=== PATIENT | female | born 1955 | race Caucasian/White ===

== ENCOUNTER 2017-01-27 05:39 | Inpatient (IN) | payer MEDICARE ==
[2017-01-27 06:50] LABS: #Basophils 0.1 thou/uL (0.0-0.2); #Eosinphils 0.2 thou/uL (0.0-0.7); #Lymphocytes 1.1 thou/uL (1.20-3.40); #Monocytes 0.3 thou/uL (0.11-0.59); #Neutrophils 8.5 thou/uL (1.40-6.50); %Basophils 0.6 % (0.0-1.0); %Eosinophils 1.8 % (0.0-10.0); %Lymphocytes 10.8 % (21.0-51.0); %Monocytes 3.1 % (0.0-10.0); Hematocrit 18.8 % (36.0-47.0); Mean Platelet Volume 7.1 fL (7.4-10.4); Red Blood Cell (RBC) Count 1.82 mill/uL (4.20-5.40); White Blood Cell (WBC) Count 10.1 thou/uL (4.8-10.8)
[2017-01-27 07:04] LABS: PTT 24.7 SEC (22.9-36.1)
[2017-01-27 07:09] LABS: ALT (SGPT) 8 U/L (8-55); AST (SGOT) 10 U/L (5-34); Alkaline Phosphatase 58 U/L (40-150); Anion Gap 29 mmol/L (10-20); BUN (Urea Nitrogen) 105 mg/dL (9.8-20.1); Bilirubin, Total 0.3 mg/dL (0.2-1.2); Calc. Creatinine Clearance 0 mL/min (70-130); Calcium 8.9 mg/dL (7.8-10.44); Carbon Dioxide 17 mmol/L (23-31); Chloride 99 mmol/L (98-107); Estimated GFR-MDRD 3; Globulin 3.1 g/dL (2.4-3.5); Protein, Total 6.7 g/dL (6.0-8.3)
[2017-01-27 07:59] LABS: Lipase 47 U/L (8-78); Magnesium 2.8 mg/dL (1.6-2.6); Phosphorus 8.7 mg/dL (2.3-4.7)
[2017-01-27] MEDS ORDERED: Calcium Chloride 1 GM/10 ML Abboject SYRINGE ONE (08:10)
[2017-01-27] MEDS ORDERED: Insulin Regular 300 UNITS/3 ML VIAL ONE (08:10)
[2017-01-27 08:15] LABS: Troponin I 3.098 ng/mL (< 0.028)
[2017-01-27 08:19] LABS: Bilirubin Negative (Negative); Blood, Urine Trace (Negative); Glucose, Urine (Dipstick) 250 mg/dL (Negative); Ketone, Urine Negative (Negative); Nitrite Negative (Negative); Protein, Urine (Dipstick) 300 mg/dL (Neg-Trace); Urobilinogen 0.2 mg/dL (0.2-1.0)
[2017-01-27 08:21] LABS: Bacteria/HPF None Seen HPF (None Seen); Hyaline Casts/LPF 4-6 HYALINE CAST LPF (0-3 Hyaline); RBC/HPF None Seen HPF (0-3); Squamous Epithelial 0-3 HPF (0-3); WBC/HPF None Seen HPF (0-3)
[2017-01-27] MEDS ORDERED: Famotidine 20 MG TAB PO SCH ×2 (09:00→21:00)
[2017-01-27 09:18] LABS: Anion Gap 7 mmol/L (-14-95); Critical Call POC Critical Value; T. Carbon Dioxide 16.3 mmol/L (1.0-85.0); pH (Venous) 7.395 (7.35-7.45); vO2 Saturation-calc 99.5 % (0.0-100.0)
[2017-01-27] MEDS ORDERED: Morphine 2 mg/2ml in 0.9% NaCl PF SYRINGE ONE (09:28)
[2017-01-27 10:17] LABS: Troponin I 2.728 ng/mL (< 0.028)
[2017-01-27] MEDS ORDERED: Ondansetron HCl/PF 4 MG/2 ML Vial IVP PRN ×2 (10:36)
[2017-01-27] MEDS ORDERED: Acetaminophen 325 MG TAB PO PRN ×2 (10:36)
[2017-01-27] MEDS ORDERED: Diabetic Tussin 200 MG/10 ML UDCUP PO PRN (10:36)
[2017-01-27] MEDS ORDERED: Benzonatate 100 MG CAP PO PRN (10:36)
[2017-01-27] MEDS ORDERED: Mag-Al 1200 mg/1200 mg/30 ML UDCUP PO PRN ×2 (10:36)
[2017-01-27] MEDS ORDERED: Bisacodyl 5 MG TAB PO PRN ×2 (10:36)
[2017-01-27] MEDS ORDERED: Loratadine 10 MG TAB PO PRN (10:36)
[2017-01-27] MEDS ORDERED: Calcium Carbonate 500 MG ChewTAB PO PRN (10:36)
[2017-01-27] MEDS ORDERED: hydrALAZINE 20 MG/ML VIAL SLOW IVP PRN (10:36)
[2017-01-27] MEDS ORDERED: Senokot 8.6 MG TAB PO PRN ×2 (10:36)
[2017-01-27] MEDS ORDERED: cloNIDine 0.1 MG TAB PO PRN (10:36)
[2017-01-27] MEDS ORDERED: Nitroglycerin 0.4 MG TAB (25 Tab Bottle) SL PRN (10:36)
[2017-01-27] MEDS ORDERED: Lorazepam 1 MG TAB PO PRN (10:36)
[2017-01-27] MEDS ORDERED: Heparin 5,000 UNITS/ML VIAL SC SCH ×2 (10:36→21:00)
[2017-01-27] MEDS ORDERED: HYDROcodone/Acetaminophen 10/325 mg Tablet PO SCH (10:54)
[2017-01-27] MEDS ORDERED: Dextrose 5% in Water 1,000 ML IV PRN (14:07)
[2017-01-27] MEDS ORDERED: Dextrose 50% Abboject 50 ML SYRINGE SLOW IVP PRN (14:07)
[2017-01-27] MEDS ORDERED: HumaLOG 300 UNITS/3 ML VIAL SC PRN ×2 (14:07)
[2017-01-27 15:15] VITALS: BMI 41.5
--- NOTE | 2017-01-27 15:56 | HP ---
DATE OF ADMISSION: 01/27/2017 PRIMARY CARE PHYSICIAN: None. CHIEF COMPLAINT: Vaginal bleed and missed hemodialysis and generalized weakness. HISTORY OF PRESENT ILLNESS: Ms. Allen is a 61-year-old female with known history of uterine cancer status post incomplete treatment 3 years ago and hysterectomy as well as end-stage renal disease and coronary artery disease and diabetes, who presented to the emergency room with the above-mentioned c omplaint. History is mainly obtained by the patient herself, who is somewhat a poor historian. [facility] records have been reviewed extensively. She was last admitted to our facility with similar compl aints in 08/2016 and was admitted by myself. At that time, she was seen by GLOVE MACHINE OPERATOR as well as Oncolog y for vaginal bleed secondary to cervical cancer and was referred back to her primary oncologist in [facility] in [place]; Dr. Hollis. Today, she tells me that she has once again failed to follow up. She has 2 deaths in her family including her sister and her dad and is currently dependent on her ks phew for her daily care and has not been able to follow up. She says that they did call and try to m liban appointment, but we were unable to get the appointment at Dr. Hollis's office. She presented to the emergency room today complaining of abdominal pain, weakness, and muscle crampin g. She reports of passing significant blood clots for the last many days. She reports that she pass es blood clots on and off and sometimes they are really bad. Some months, she does not have any blee d at all but some months is really bad. Today upon presentation, she was hemodynamically stable with the blood pressure of 148/73 and pulse o f 70. Her examination including of gynecological examination did showed significant clot in the vagi na, as well as significant lab abnormalities due to missed hemodialysis. She was found to be hyperka lemic with a potassium of 7.5 with significant metabolic acidosis. She was found to be in gross flui d overloaded with the BNP of 2700. She also had elevated troponin in the range of 3.098 with repeat troponin of 2.728. In the emergency room, 2 units packed RBC were ordered for him. She was treated for hyperkalemia wit h calcium chloride as well as insulin with dextrose and is now being admitted for further evaluation and care. Her executive vice president and chief operating officer, Dr. Stevens has been contacted by the ER physician and she has actually finished an emergent hemodialysis session. Reportedly, she did not tolerate any fluid removal. She has seen and examined in the dialysis unit. PAST MEDICAL HISTORY: 1. End-stage renal disease, on hemodialysis. 2. History of gram negative bacteremia with Klebseilla in 02/2015. 3. Coronary artery disease with history of stent placement. 4. Hypertension. 5. Diabetes. 6. Dyslipidemia. 7. Uterine cancer with status post hysterectomy and chemotherapy x1 in 11/2014. 8. Chronic anemia. 9. Lower extremity ulcers, chronic. PAST SURGICAL HISTORY: 1. Breast reduction. 2. Hysterectomy with oophorectomy. 3. Appendectomy. 4. Hernia repair. 5. Cardiac stent placement. ALLERGIES: LEVOFLOXACIN and FLAGYL. SOCIAL HISTORY: She currently lives at home with her nephew, who is the primary care provider. No h istory of drug, tobacco, or alcohol abuse. FAMILY HISTORY: Significant for heart disease. CURRENT MEDICATIONS: Unknown. The patient did not bring the list of the medications with her. Acco rding to the ER note, she takes the following carvedilol 16.25 b.i.d., Renvela 800 mg 3 tablets three times a day, Cheryl-Shaila 0.8 mg daily, atorvastatin 20 mg daily, amitriptyline 25 mg 3 tablets at bedt hi, Plavix 75 mg daily, and hydralazine 50 mg t.i.d. REVIEW OF SYSTEMS: The following complete review of systems was negative, unless otherwise mentioned in the HPI or below: Constitutional: Weight loss or gain, ability to conduct usual activities. Skin: Rash, itching. Eyes: Double vision, pain. ENT/Mouth: Nose bleeding, neck stiffness, pain, tenderness. Cardiovascular: Palpitations, dyspnea on exertion, orthopnea. Respiratory: Shortness of breath, wheezing, cough, hemoptysis, fever or night sweats. Gastrointestinal: Poor appetite, abdominal pain, heartburn, nausea, vomiting, constipation, or diarrh ea. Genitourinary: Urgency, frequency, dysuria, nocturia. Musculoskeletal: Pain, swelling. Neurologic/Psychiatric: Anxiety, depression. Allergy/Immunologic: Skin rash, bleeding tendency. PHYSICAL EXAMINATION: VITAL SIGNS: Most recent blood pressure 141/79, pulse of 74, respirations 22, saturating 100% on shayla m air, and temperature on presentation; afebrile. GENERAL: She appears pale, weak, and tired looking, but no acute distress. Awake, alert, oriented x 3. HEENT: Conjunctival pallor is noted. No scleral icterus. Head is normocephalic, atraumatic. Pupil s are equal, reactive to light and accommodation. Extraocular movements intact. NECK: Supple without any lymphadenopathy, JVD, or bruit. CHEST: Clear to auscultation with some bibasilar rales. No wheezes noted. CARDIOVASCULAR: Regular rate and rhythm is regular without any murmur, rubs or gallops. ABDOMEN: Obese, somewhat tender to palpation and distended. EXTREMITIES: Dialysis fistula with thrill and bruit present. Some pedal edema bilaterally without a ny erythema. NEUROLOGIC: Nonfocal. SKIN: Free of any rashes or bruises, feels warm and dry to touch. PSYCHIATRIC: Depressed affect. LABORATORY DATA: A 12 lead EKG by my review showed some T-wave inversion in lead 1, 2, aVL, and V3, and V6. Normal sinus rhythm. CBC shows a hemoglobin of 6.0 with hematocrit of 18.8, platelet count of 268. WBC is 10.1 with 83% n eutrophils. PT, PTT, and INR were within normal limits. Serum chemistries show potassium of 7.5 with a repeat potassium of 7. Bicarbonate 17, anion gap 29, BUN 105, creatinine 13.5, blood sugar 291, troponin 3.098 with repeat troponin of 2.7-8. Beta hydrox ybutyrate is 0.74. Urinalysis show hyalin casts and trace of blood along with protein urine and gluc osuria, but no bacteria. IMPRESSION AND PLAN: 1. Acute blood loss anemia. The patient is status post transfusion of 2 units packed red blood cell s. We will monitor hemoglobin and hematocrit closely and consult Obstetrics/Gynecology for ongoing v aginal bleed. She will be in IMCU for close monitoring. She is currently hemodynamically stable. 2. Fluid overload, hemodialysis urgently has been done. We will monitor fluid status closely. Neph rology has been consulted. 3. Hyperkalemia. We will recheck labs after the hemodialysis. She has been treated emergently in [facility] emergency room with potassium chloride and insulin. 4. Elevated cardiac enzymes. This is most likely secondary to demand ischemia from significant bloo d loss. At this time, we will repeat the troponin and obtain a transthoracic echocardiogram. The la st one for her was done in 10/2015, which was rather unremarkable. She also had a nuclear medicine s tress test done at the same time, which did not show any active ischemia. If her troponins continue to trend upwards, we would request consultations with Cardiology. At this time, we will restart her home medications except for the Plavix given the vaginal bleed. The patient does not have any chest pain at this time. 5. Anion gap metabolic acidosis. This is secondary to acute on chronic kidney insufficiency. Hemod ialysis as indicated. I have discussed this with Dr. Stevens and the patient will be treated with da deena hemodialysis until the electrolyte abnormalities are settle. 6. Acute on chronic kidney insufficiency due to missed hemodialysis. Hemodialysis as tolerated as p er Nephrology. 7. Hyperphosphatemia and hypomagnesemia. Once again electrolyte abnormalities will be taken care of by the hemodialysis. This is secondary to acute on chronic kidney insufficiency. 8. History of hypertension, currently controlled. We will restart her home medications once confirm ed. 9. History of uterine cancer. Once again, I have encouraged the patient to call her oncologist and make a followup appointment. Because of the holidays, the offices closed for the next 3 da ys. I will discuss this with her nephew, who is currently responsible for her care and emphasized th e need for followups. 10. Dyslipidemia. We will restart her Statin, once the dose is confirmed. 11. Code status: FULL CODE for now. Discussed with the patient. 12. Add sequential compression devices for gastrointestinal prophylaxis and proton pump inhibitors f or GI prophylaxis and sequential compression devices for deep venous thrombosis prophylaxis. Avoid p harmacological deep venous thrombosis prophylaxis at this time due to active vaginal bleed. DISPOSITION: Ms. Allen is currently being admitted due to acute on chronic kidney insufficiency as well as acute blood loss anemia due to vaginal bleed. Estimated length of stay is at least 2-3 midnight. She will be admitted to [facility] and further manageme nt will depend upon her clinical course.
[2017-01-27] MEDS ORDERED: Polyethylene Glycol 3350 17 GM Packet PO PRN (17:20)
--- NOTE | 2017-01-27 17:23 | CT ---
ABDOMEN AND PELVIC CT SCAN WITHOUT IV CONTRAST: 01/27/17 The lung bases appear clear. There is some cardiomegaly with extensive three vessel coronary artery c alcific disease. There is extensive vascular calcifications. There is some minimal increased attenuat ion density in the dependent portion of the gallbladder possibly either very small stones or thick sl udge without gallbladder wall thickening or pericholecystic fluid. The kidneys are markedly small sahil aterally, having the appearance of longstanding chronic nonspecific renal disease without hydronephro sis. The visualized pancreas, spleen, and adrenal glands are unremarkable. In the pelvis, there is a lobulated mass in the region of the cervix measuring approximately 4.7 x 6.2 cm. In addition, there i s a lobulated mass of adenopathy in the left pelvis measuring approximately 5.8 x 6.6 cm. This adenop athy area has markedly increased in size when compared to the 08/18/16 study. The mass in the region o f the cervix also appears to be more lobulated and has enlarged since the prior study. There appears to be some new adenopathy, somewhat more caudally in the left pelvic sidewall at the level of the hip joint. IMPRESSION: Marked enlargement and progressive nodularity of mass in the region of the vaginal cuff and cervix as well as extensive worsening of left sided pelvic adenopathy since prior 08/18/16 study. Certainly wor risome for worsening cervical cancer and metastasis. Small chronic kidneys bilaterally, stable. Stabl e increased density in the dependent portion of the gallbladder. Enlarging lymph node in the left upp er iliac chain. POS: ARTUR
[2017-01-27 18:13] LABS: Critical Call Chem Troponin I RESULT DECREASING; Troponin I 2.351 ng/mL (< 0.028)
[2017-01-27] MEDS: Amitriptyline HCl 25 MG TAB PO SCH (21:18)
[2017-01-27] MEDS: Carvedilol 6.25 MG TAB PO SCH (21:19)
[2017-01-27] MEDS: Atorvastatin Calcium 20 MG TAB PO SCH (21:19)
[2017-01-27] MEDS: traMADol HCl 50 MG TAB PO PRN (21:29)
--- NOTE | 2017-01-27 23:33 | CON ---
DATE OF SERVICE: 01/27/2017 TYPE OF CONSULTATION: Gynecologic. REASON FOR CONSULTATION: Heavy vaginal bleeding and anemia. HISTORY OF PRESENT ILLNESS: At the time of presentation, Ms. Allen is a 61-year-old female who is actually known to me from her admission in 08/2016 for similar complaints. At that time, Ms. Allen was found to have likely recurrence of the clear cell carcinoma for which she had a hysterectomy by Dr. Hollis in [place]. Unfortunately, Ms. Allen has not had a good followup for this condition and h as had progression of the fungating mass in the vagina and at the vaginal cuff on the abdominal side with intermittent heavy vaginal bleeding. The patient reports sustaining lower abdominal pain that s he complained of several months ago as well as early satiety, rare nausea and vomiting. She states s he does have regular bowel movements. The patient states that she does still urinate despite her end -stage renal disease and dialysis and that is unchanged. She denies any cardiovascular or respirator y complaints currently but did receive dialysis earlier today. She does complain of worsening in her weakness and fatigue. LIMITED REVIEW OF SYSTEMS: Per HPI. PAST MEDICAL HISTORY: Obtained from the patient's chart, clear cell adenocarcinoma of the uterus, en d-stage renal disease, coronary artery disease, history of [place] with stent placement, type 2 diabetes, chronic hypertension. PAST SURGICAL HISTORY: MICHAEL-BSO, breast reduction, appendectomy, hernia repair. ALLERGIES: LEVOFLOXACIN and METRONIDAZOLE. CURRENT MEDICATIONS: Please refer to the patient's current medical record. PHYSICAL EXAMINATION: VITAL SIGNS: Temperature 97.6, pulse 83, respiratory rate 22, blood pressure 141/32. GENERAL: Nontoxic-appearing female, in no acute distress. SKIN: The patient seems reasonably oriented and actually remembers me from her hospital stay in 08/06 017 but does not seem to remember some details of her medical care. There are no family members pres ent in the room. The patient states she lives with her niece and her nephew generally takes her to h er dialysis appointment. HEENT: Normocephalic, atraumatic. LUNGS: Clear to auscultation in the upper lung paredes. CARDIOVASCULAR: Regular rate and rhythm. ABDOMEN: Obese, tender in the lower midline pelvis. EXTREMITIES: No cyanosis or clubbing, but there is marked edema 2+ on the right, 3+ on the left with pitting. The patient states that her edema is always greater on the left and there is some associat ed left leg pain which is also chronic. LABORATORY DATA AND IMAGING STUDIES: White blood cell count 10.1, hemoglobin 6.0, hematocrit 18.8, p latelets 268,000. PT 16, PTT 24.7, INR 1.3. Sodium 137, potassium 7.5, BUN 105, creatinine 13.5, T and ALT are 10 and 8, respectively. Urinalysis is negative for pyuria. CT scan of the abdomen and pelvis without contrast is notable for marked enlargement of progressive n odularity of the mass in the region of the vaginal cuff and cervix as well as extensive worsening of left-sided pelvic adenopathy since her prior scan on 08/18/2016, enlarging lymph nodes in the left up per iliac chain. No mention is made of free fluid in the pelvis. ASSESSMENT AND PLAN: Ms. Allen is a very pleasant 61-year-old female with multiple medical problem s and lost to follow up and treatment for her clear cell adenocarcinoma of the uterus for which she d id receive a MICHAEL and BSO. The patient only received 1 dose of chemotherapy and has not been seen aft er that. After the patient's discharge in 08/2016, she was supposed to follow up with Oncology who c ould hopefully discuss treatment options for controlling the patient's bleeding and pain. Apparently , this follow up never happened. The patient does not remember seeing an oncologist or going to an O ncology visit, although she does remember going to dialysis treatments and thinks that those were the only doctors' visits that she has had. The patient is not, at the time of my evaluation, having hea vy vaginal bleeding. I did defer the exam simply because there was no active bleeding at this time a nd given that she has a fungating vaginal mass, hesitated to disturb it and cause more bleeding. Ultimately, we will need to have Oncology consult on this patient and make recommendations for treatm ent. Additionally, perhaps social media specialist can be employed to ensure that the patient has an appoint ment with transportation if needed and to possibly explore the factors that may be preventing her fro m receiving the care she needs as an outpatient.
--- NOTE | 2017-01-27 23:36 | CON ---
DATE OF CONSULTATION: 01/27/2017 CONSULTING PHYSICIAN: Dr. Yelena Nobles. REASON FOR CONSULTATION: End-stage renal disease. REASON FOR ADMISSION: Bleeding, anemia, hyperkalemia, and weakness. HISTORY OF PRESENT ILLNESS: This is a 61-year-old female with history of uterine cancer, end-stage r enal disease, coronary artery disease, diabetes, who came to the hospital with weakness. She missed dialysis for almost a week and was feeling weak. She was found to have potassium of 7 with anemia, a nd hemoglobin of 6, she was complaining of vaginal bleeding. The patient was seen and the patient initially refused dialysis, but was agreeable after counseling. No fever or chills, no nausea, vomiting, or diarrhea. The patient was complaining of leg pain. PAST MEDICAL HISTORY: Positive for end-stage renal disease, uterine cancer, anemia, coronary artery disease, hypertension, type 1 diabetes, and obesity. PAST SURGICAL HISTORY: Breast reduction surgery, hysterectomy, appendectomy, hernia repair, and card iac stent placement. HOME MEDICATIONS: Carvedilol, Renvela, Cheryl-Shaila, atorvastatin, amitriptyline, Plavix, and hydralazi ne. ALLERGIES: LEVOFLOXACIN and FLAGYL. SOCIAL HISTORY: No smoking, alcohol, or illicit drug abuse. FAMILY HISTORY: Positive for heart disease. REVIEW OF SYSTEMS: The following complete review of systems was negative, unless otherwise mentioned in the HPI or below. PHYSICAL EXAMINATION: GENERAL: This is an obese female in no apparent distress. VITAL SIGNS: Temperature 97.6, pulse 83, respiratory rate 22, and blood pressure 114/32. HEENT: Atraumatic, normocephalic. Oral mucosa is moist. NECK: Supple, no masses. CARDIOVASCULAR: S1 and S2 heard. Rate and rhythm regular. RESPIRATORY: Clear. MUSCULOSKELETAL: 1+ edema. DERMATOLOGIC: No skin rash. NEUROLOGIC: Alert and awake. PSYCHIATRIC: Mood and affect normal. LABORATORY AND X-RAY FINDINGS: Hemoglobin was 6, potassium was 7. ASSESSMENT AND PLAN: 1. Severe hyperkalemia, emergent dialysis. 2. End-stage renal disease as above. 3. Anemia. We will transfuse with dialysis. 4. Edema, controlled. 5. Hypertension. 5. Vaginal bleeding, follow up with primary team. The plan is to transfuse with dialysis and will have dialysis. Repeat labs in the morning. If potas sium remains elevated, we will have another session of dialysis in the morning. Thank you for the consult.
[2017-01-28 04:59] LABS: #Basophils 0.1 thou/uL (0.0-0.2); #Eosinphils 0.2 thou/uL (0.0-0.7); #Lymphocytes 1.7 thou/uL (1.20-3.40); #Monocytes 0.6 thou/uL (0.11-0.59); #Neutrophils 6.9 thou/uL (1.40-6.50); %Basophils 0.7 % (0.0-1.0); %Eosinophils 2.3 % (0.0-10.0); %Lymphocytes 18.2 % (21.0-51.0); %Monocytes 6.5 % (0.0-10.0); Hematocrit 21.5 % (36.0-47.0); Mean Platelet Volume 6.9 fL (7.4-10.4); Red Blood Cell (RBC) Count 2.19 mill/uL (4.20-5.40); White Blood Cell (WBC) Count 9.6 thou/uL (4.8-10.8)
[2017-01-28 05:25] LABS: Anion Gap 16 mmol/L (10-20); BUN (Urea Nitrogen) 38 mg/dL (9.8-20.1); Calc. Creatinine Clearance 13 mL/min (70-130); Calcium 8.3 mg/dL (7.8-10.44); Carbon Dioxide 27 mmol/L (23-31); Chloride 99 mmol/L (98-107); Estimated GFR-MDRD 6
[2017-01-28] MEDS: Carvedilol 6.25 MG TAB PO SCH ×2 (09:02→21:35)
[2017-01-28] MEDS: Sevelamer Carbonate 800 MG TAB PO SCH ×4 (09:08→17:50)
[2017-01-28] MEDS: traMADol HCl 50 MG TAB PO PRN (09:33)
--- NOTE | 2017-01-28 13:23 | PRG ---
DATE OF SERVICE: 01/28/2017 HISTORY OF PRESENT ILLNESS: The patient is a 61-year-old female with known recurrent clear cell carc inoma located at the cuff of the vagina. She presented for vaginal bleeding and has been transfused now 3 units of packed red blood cells. The patient at this time is having [id number] vaginal blee ding, though presented after having very heavy vaginal bleeding that has spontaneously stopped. PHYSICAL EXAMINATION: VITAL SIGNS: Currently, 128/40, temperature 98.2, respiratory rate 16, satting 95% on room air with a pulse of 69. GENERAL: She appears to be in no acute distress at this time, sitting up quiet in the bed. LABORATORY STUDIES: Her hemoglobin is 7.0 after 2 units of packed red blood cells, Hematocrit of 21. 5, and platelets of 221,000. CT scan demonstrates marked enlargement and progressive nodularity of t he mass in the region of the vaginal cuff as well as extensive worsening of left-sided pelvic adenopa thy since 08/18/2016. ASSESSMENT: The patient is a 61-year-old female with acute vaginal bleeding that had since spontaneo usly stopped. Bleeding is likely connected with what is likely recurrent uterine cancer at the cuff of her vagina that is growing and likely a spread into the right pelvis and possible to other parts o f the body. Acutely patient is stable; however, unpredictable nature of her heavy vaginal bleeding m akes the need for evaluation by Gynecology-Oncology and a treatment plan put in place urgent. The mauro celso did not follow up as planned in 08/2016 nor followed up appropriately at the time of her diagno sis and surgery several years ago. My recommendations at this time would be a aqcnaolf-[id number]-nxstkjde t marianasfer where she can be evaluated by Gynecology-Oncology and a treatment plan put in place. That pl an likely would include radiation to the vaginal cuff, which could in the long-term control her bleed ing. The gynecologic oncologist, who agreed to see her back in August is Dr. Hollis, . Edith sarah, at this point in time transfer to any location where she can continue receiving the hospital car e she needs and be seen by a gynecologic oncologist for evaluation and treatment would be best.
[2017-01-28] MEDS ORDERED: HYDROcodone/Acetaminophen 5/325 mg Tablet PO PRN ×2 (15:15)
--- NOTE | 2017-01-28 15:16 | PDOC.PN ---
- Subjective Encounter Start Date: 01/28/17 Encounter Start Time: 15:13 Subjective: feels better.stiil some on and off bleed but minor -: no chest pain/sob. -: c/o lower abdominal pain - Objective MAR Reviewed: Yes Vital Signs & Weight: Vital Signs (12 hours) Temp Pulse Pulse Resp BP BP BP 01/28/17 15:02 98.0 F 66 16 123/44 L 01/28/17 12:30 98.2 F 69 16 128/40 L 01/28/17 11:50 97.2 F L 66 16 107/36 L 01/28/17 09:02 134/41 L 01/28/17 08:00 98.4 F 66 22 H 133/57 L 01/28/17 04:30 98.2 F 68 18 114/64 Pulse Ox 01/28/17 15:02 94 L 01/28/17 12:30 95 01/28/17 11:50 94 L 01/28/17 09:02 01/28/17 08:00 96 01/28/17 04:30 95 Weight Weight 213 lb 4.8 oz I&O: 01/27/17 01/28/17 01/29/17 06:59 06:59 06:59 Intake Total 1060 350 Output Total 200 Balance 860 350 Result Diagrams: 01/28/17 04:22 01/28/17 04:22 Additional Labs: Accuchecks 01/28/17 01/28/17 01/27/17 11:28 06:24 21:10 POC Glucose 170 H 167 H 186 H Laboratory Tests 01/27/17 01/27/17 01/27/17 06:21 06:36 09:33 Anion Gap 29 H Creatinine 13.50 H Troponin I 3.098 H* 2.728 H* 01/27/17 01/27/17 01/28/17 14:36 17:41 04:22 Anion Gap 16 Creatinine 6.79 H Troponin I 2.560 H* 2.351 H* Phys Exam - Physical Examination Constitutional: NAD pale HEENT: PERRLA, moist MMs, sclera anicteric, oral pharynx no lesions Neck: no nodes, no JVD, supple, full ROM Respiratory: no wheezing, no rales, no rhonchi, clear to auscultation bilateral Cardiovascular: RRR, no significant murmur Gastrointestinal: soft, no distention, positive bowel sounds slight TTP lower abdomen Musculoskeletal: no edema, pulses present Neurological: non-focal, normal sensation, moves all 4 limbs Psychiatric: normal affect, A&O x 3 Skin: no rash Dx/Plan (1) Acute blood loss anemia Code(s): D62 - ACUTE POSTHEMORRHAGIC ANEMIA Status: Acute (2) Fluid overload Code(s): E87.70 - FLUID OVERLOAD, UNSPECIFIED Status: Acute (3) Demand ischemia of myocardium Code(s): I24.8 - OTHER FORMS OF ACUTE ISCHEMIC HEART DISEASE Status: Acute (4) ESRD (end stage renal disease) Code(s): N18.6 - END STAGE RENAL DISEASE Status: Chronic (5) Vaginal bleeding, abnormal Code(s): N93.9 - ABNORMAL UTERINE AND VAGINAL BLEEDING, UNSPECIFIED Status: Chronic Comment: History of uterine cancer. To f/u with oncology in [place]. (6) Coronary artery disease Code(s): I25.10 - ATHSCL HEART DISEASE OF [place] CORONARY ARTERY W/O ANG PCTRS Status: Chronic (7) Diabetes mellitus Code(s): E11.9 - TYPE 2 DIABETES MELLITUS WITHOUT COMPLICATIONS Status: Chronic Qualifiers: Diabetes mellitus complication status: with kidney complications Diabetes mellitus complication detail: with chronic kidney disease (8) Dyslipidemia Code(s): E78.5 - HYPERLIPIDEMIA, UNSPECIFIED Status: Chronic (9) Hypertension Code(s): I10 - ESSENTIAL (PRIMARY) HYPERTENSION Status: Chronic (10) Morbid obesity with BMI of 45.0-49.9, adult Code(s): E66.01 - MORBID (SEVERE) OBESITY DUE TO EXCESS CALORIES; Z68.42 - BODY MASS INDEX (BMI) 45.0-49.9, ADULT Status: Chronic (11) Secondary hyperparathyroidism of renal origin Code(s): N25.81 - SECONDARY HYPERPARATHYROIDISM OF RENAL ORIGIN Status: Chronic (12) Uterine cancer Code(s): C55 - MALIGNANT NEOPLASM OF UTERUS, PART UNSPECIFIED Status: Chronic Comment: s/p MICHAEL BSO - Plan PT/OT, social media senior associate, DVT proph w/SCDs discussed case w & then @ [place] [facility] -: has accepted the pt for inpt admission as she needs Network Designer-Onc care -: cont to monitor H/H.will give 1 more unit prbc during transfer. -: hemodynamically stable.care discussed w pt as well. -: awaiting transfer.HD per nephrology * . Review of Systems - Review of Systems Constitutional: weakness, malaise. negative: fever, chills, sweats, other ENT: negative: Ear Pain, Ear Discharge, Nose Pain, Nose Discharge, Nose Congestion, Mouth Pain, Mouth Swelling, Throat Pain, Throat Swelling, Other Cardiovascular: negative: chest pain, palpitations, orthopnea, paroxysmal nocturnal dyspnea, edema, light headedness, other Gastrointestinal: Abdominal Pain. negative: Nausea, Vomiting, Diarrhea, Constipation, Melena, Hematochezia, Other Genitourinary: negative: Dysuria, Frequency, Incontinence, Hematuria, Retention , Other Musculoskeletal: negative: Neck Pain, Shoulder Pain, Arm Pain, Back Pain, Hand Pain, Leg Pain, Foot Pain, Other Neurological: negative: Weakness, Numbness, Incoordination, Change in Speech, Confusion, Seizures, Other - Medications/Allergies Allergies/Adverse Reactions: Allergies Allergy/AdvReac Type Severity Reaction Status Date / Time ofloxacin [From Floxin] Allergy Mild Verified 01/27/17 15:25 metronidazole [From Flagyl] Allergy Verified 01/27/17 15:25 Medications: Current Medications Acetaminophen (Tylenol) 650 mg PO Q4H PRN PRN Reason: Headache/Fever or Mild Pain Acetaminophen (Tylenol) 650 mg PO Q4H PRN PRN Reason: Headache/Fever or Pain Al Hydroxide/Mg Hydroxide (Maalox) 15 ml PO Q4H PRN PRN Reason: Heartburn or Indigestion Al Hydroxide/Mg Hydroxide (Maalox) 30 ml PO Q6H PRN PRN Reason: Heartburn or Indigestion Amitriptyline HCl (Elavil) 75 mg PO HS [facility] Last Admin: 01/27/17 21:18 Dose: 75 mg Atorvastatin Calcium (Lipitor) 20 mg PO [facility] Last Admin: 01/27/17 21:19 Dose: 20 mg Benzonatate (Tessalon) 100 mg PO Q4H PRN PRN Reason: Cough Bisacodyl (Dulcolax) 10 mg PO DAILYPRN PRN PRN Reason: Constipation Bisacodyl (Dulcolax) 10 mg PO DAILYPRN PRN PRN Reason: Constipation Calcium Carbonate (Tums) 1,000 mg PO Q4H PRN PRN Reason: Heartburn or Indigestion Carvedilol (Coreg) 6.25 mg PO BID [facility] Last Admin: 01/28/17 09:02 Dose: 6.25 mg Clonidine (Catapres) 0.1 mg PO Q4H PRN PRN Reason: Systolic BP > 160 Dextrose/Water (Dextrose 50%) 25 gm SLOW IVP PRN PRN PRN Reason: Hypoglycemia Glucagon (Glucagon) 1 mg IM PRN PRN PRN Reason: Hypoglycemia Guaifenesin (Robitussin Sf) 200 mg PO Q4H PRN PRN Reason: Cough Hydralazine HCl (Apresoline) 10 mg SLOW IVP Q4H PRN PRN Reason: Systolic BP > 170 Dextrose/Water (D5w) 1,000 mls @ 0 mls/hr IV .Q0M PRN; As Directed PRN Reason: Hypoglycemia Insulin Human Lispro (Humalog) 0 units SC .MODERATE SLIDING SC PRN PRN Reason: Moderate Correctional Scale Insulin Human Lispro (Humalog) 0 units SC .BEDTIME SLIDING SC PRN PRN Reason: Bedtime Correctional Scale Loratadine (Claritin) 10 mg PO DAILYPRN PRN PRN Reason: Sinus Symptoms Lorazepam (Ativan) 1 mg PO Q4H PRN PRN Reason: Anxiety/Agitation Last Admin: 01/27/17 16:33 Dose: 1 mg Nitroglycerin (Nitrostat) 0.4 mg SL Q5MIN PRN PRN Reason: Chest Pain Ondansetron HCl (Zofran) 4 mg IVP Q6H PRN PRN Reason: Nausea/Vomiting Ondansetron HCl (Zofran) 4 mg IVP Q6H PRN PRN Reason: Nausea/Vomiting Pantoprazole Sodium (Protonix) 40 mg PO 0900 [facility] Last Admin: 01/28/17 09:02 Dose: 40 mg Polyethylene Glycol (Miralax) 17 gm PO DAILY PRN PRN Reason: Constipation Senna (Senokot) 2 tab PO HSPRN PRN PRN Reason: Constipation Senna (Senokot) 2 tab PO HSPRN PRN PRN Reason: Constipation Sevelamer Carbonate (Renvela) 800 mg PO [facility]ID[facility] Last Admin: 01/28/17 12:16 Dose: 800 mg Tramadol HCl (Ultram) 50 mg PO Q4H PRN PRN Reason: Moderate Pain (4-6) Last Admin: 01/28/17 09:33 Dose: 50 mg
[2017-01-28 15:46] LABS: Troponin I 2.797 ng/mL (< 0.028)
[2017-01-28 19:39] VITALS: TEMP 98
--- NOTE | 2017-01-28 19:46 | RAD ---
UPRIGHT CHEST ONE VIEW: History: 61-year-old female with history of cervical cancer with left central line placement for position eval uation. Comparison: 10-13-15 FINDINGS: There is a left subclavian catheter with the tip in the superior vena cava. Left subclavian vascular stent. Minimal cardiomegaly. No evidence for pneumothorax or pleural effusion or other acute process. IMPRESSION: Left subclavian catheter placement without complication. Minimal cardiomegaly. POS: [facility]
--- NOTE | 2017-01-28 19:53 | OP ---
DATE OF PROCEDURE: 01/28/2017 PREOPERATIVE DIAGNOSES: Anemia, vaginal bleeding, end-stage renal disease. POSTOPERATIVE DIAGNOSES: Anemia, vaginal bleeding, end-stage renal disease. PROCEDURE: Left subclavian vein triple lumen catheter. SURGEON: Dr. Delvis Monterroso ANESTHESIA: 1% Xylocaine. PROCEDURE: At the patient's bedside, left periclavicular area was prepared with chloraprep, draped i n routine fashion. 1% Xylocaine infiltrated into skin and subcutaneous tissue about the operative si te. Trocar catheter cannulated the subclavian vein and J-wire threaded. Seldinger technique was use d to place a triple lumen catheter, removing the J-wire, securing the catheter with 2 interrupted sut ures of 3-0 silk. Biopatch sterile dressing applied. Each port aspirated blood and transected solut ion and flushed each port. Patient tolerated the procedure well.
--- NOTE | 2017-01-28 20:00 | PRG ---
DATE OF SERVICE: 01/29/2017 SUBJECTIVE: Patient was seen and examined at bedside and overnight events noted. Patient denies any shortness of breath or chest pain or palpitation. No history of nausea or vomiting or diarrhea or f ever or chills or cramps. OBJECTIVE: GENERAL: This is a morbidly obese white female in no apparent distress. VITAL SIGNS: Temperature 97, pulse 91, respiratory rate 16, blood pressure 146/34. HEENT: Atraumatic, normocephalic. Oral mucosa is moist. NECK: Supple. CARDIOVASCULAR: S1, S2 heard. Rate and rhythm regular. RESPIRATORY: Clear to auscultation. GASTROINTESTINAL: Abdomen is soft. MUSCULOSKELETAL: No tenderness. No edema. DERMATOLOGIC: No skin rash. NEUROLOGIC: Alert and awake and oriented x3. No focal neurologic deficits. Moving all the extremiti es. PSYCHIATRIC: Mood and affect normal. LABORATORY DATA: Potassium is 4.5, BUN is 38, creatinine 6.7, and hemoglobin is 7.7. ASSESSMENT AND PLAN: 1. End-stage renal disease on hemodialysis today and potassium level is better. No acute indication for dialysis. 2. Hyperkalemia, much better with dialysis. 3. Fluid overload, stable. 4. Anemia. Hemoglobin is slightly better after transfusion, but still around 7. Agree with another unit of transfusion. The patient does not need dialysis with transfusion today. We will monitor. If needed, we will arrange dialysis tomorrow. 5. Hypertension, stable. 6. Anemia, most likely secondary to blood loss. 7. Morbid obesity. 8. Edema, controlled. Plan is to continue on dialysis as tolerated. We will continue close monitoring of labs.
[2017-01-28] MEDS: Amitriptyline HCl 25 MG TAB PO SCH (20:45)
[2017-01-28] MEDS: Atorvastatin Calcium 20 MG TAB PO SCH (20:46)
[2017-01-28 21:35] VITALS: BP 109/47
--- NOTE | 2017-01-29 09:20 | DIS ---
PRIMARY CARE PHYSICIAN: Mirela Bui at [place], [place]. DISCHARGE DIAGNOSES: 1. Acute blood loss anemia secondary to vaginal bleed. 2. Vaginal bleed secondary to cervical and/or uterine cancer. 3. Fluid overload due to missed hemodialysis. 4. Demand ischemia. 5. End-stage renal disease, on hemodialysis. 6. Hypokalemia on presentation which resolved with hemodialysis. 7. History of coronary artery disease. 8. Diabetes mellitus. 9. Dyslipidemia. 10. Hypertension. 11. Secondary hyperparathyroidism of renal origin. 12. History of uterine cancer status post total abdominal hysterectomy and bilateral salpingo-oophor ectomy. CONSULTATIONS: 1. EMISSIONS TESTING AND REPAIR TECHNICIAN; Dr. Rodriguez and Dr. Bowie 2. Nephrology, Dr. Stevens 3. General Surgery, Dr. Monterroso for central line placement. DISCHARGE DISPOSITION: Transferred to [facility] under the care of Dr. Hollis for hig her level of acute care. PROCEDURES PERFORMED IN THE HOSPITAL: 1. Placement of a left subclavian central line by Dr. Monterroso. 2. Transthoracic echocardiogram which showed EF of 50-55% with normal left atrium and left ventricul ar size. Mild to moderate mitral regurgitation seen. 3. CT scan of the abdomen and pelvis which shows marked enlargement and progressive nodularity of ma ss in the region of the vaginal cuff and cervix as well as extensive worsening of the left-sided pelv ic adenopathy since 08/2016. Enlarging lymph node in the left upper iliac chain also noticed. DISCHARGE MEDICATIONS: Same as home medications including Ultram as needed, hydralazine 50 mg p.o. t .i.d., this was held while she was in the hospital. Clonidine 0.1 mg as needed, Renvela 800 mg p.o. t.i.d., MiraLax daily as needed, Protonix 40 mg daily, Nitrostat sublingual 0.4 mg every 5 minutes as needed, Lantus 35 units in the morning and 20 units in the evening, Coreg 6.25 mg p.o. b.i.d. This is to be used if her systolic blood pressure is more than 120, Tums as needed, Lipitor 20 mg daily, E lavil 75 mg daily, Tylenol as needed. HISTORY OF PRESENT ILLNESS: Ms. Allen is a 61-year-old female with known history of uterine cancer who came to the hospital with complaints of vaginal bleeding. She is a dialysis patient due to end- stage renal disease and has missed hemodialysis because of persistent vaginal bleed. Upon presentati on, she was found to be in gross fluid overload with hyperkalemia and acute on chronic kidney insuffi ciency as well as significant acute blood loss anemia with a hemoglobin of 6.0. She was admitted to [facility] and was transfused with 2 units of packed red blood cells and EMISSIONS TESTING AND REPAIR TECHNICIAN was consulted. HOSPITAL COURSE: The patient has no history of uterine cancer status post incomplete treatment excep t for [facility] BSO due to financial and social reasons 1 year ago. Once again, EMISSIONS TESTING AND REPAIR TECHNICIAN was consulted and a CT scan was repeated which showed marked enlargement of the mass. EMISSIONS TESTING AND REPAIR TECHNICIAN, Dr. Bowie and Dr. Rodriguez saw the patient and recommended that her fungating vaginal cuff m ass is very friable and prone to bleed and he would require inpatient transfer to her BREEDING TECHNICIAN/Oncologist at [facility]; Dr. Hollis. Dr. Hollis was contacted by myself and he graciously accepted the patient. She was transferred after she received third unit of packed RBCs and a central line wa s placed in. She did receive dialysis on the day of admission prior to discharge and her electrolyte abnormalities have resolved. She did have elevated troponin from 3.098 to 2.797 which is likely secondary to demand ischemia from significant blood loss. The patient was seen and examined prior to discharge. Please see hospitalist progress note from the date of discharge. She was hemodynamically stable and was transferred by ambulance to [facility]. Air transport was offered to the patient, but the patient declined it as she is very a fraid of flying. Please see day to day progress note for further details.
== END 2017-01-28 23:50 | disposition short-term general hospital (02) | DRG 811 ==
LOC: ERS 05:39 → ERHOLD 08:37 → IMCU/EMU 14:55
PROVIDERS: ADMIT Internal Medicine; ATTEND Internal Medicine
PROC: 30233N1 Transfusion of Nonautologous Red Blood Cells into Peripheral Vein, Percutaneous Approach (ICD-10-PCS; principal; 2017-01-27)
PROC: 5A1D70Z Performance of Urinary Filtration, Intermittent, Less than 6 Hours Per Day (ICD-10-PCS; 2017-01-27)
PROC: 30233N1 Transfusion of Nonautologous Red Blood Cells into Peripheral Vein, Percutaneous Approach (ICD-10-PCS; 2017-01-28)
PROC: 02HV33Z Insertion of Infusion Device into Superior Vena Cava, Percutaneous Approach (ICD-10-PCS; 2017-01-28)
DX: D62 Acute posthemorrhagic anemia (principal); N18.6 End stage renal disease; E11.22 Type 2 diabetes mellitus with diabetic chronic kidney disease; E87.2 Acidosis; E83.39 Other disorders of phosphorus metabolism; E66.01 Morbid (severe) obesity due to excess calories; I24.8 Other forms of acute ischemic heart disease; I12.0 Hypertensive chronic kidney disease with stage 5 chronic kidney disease or end stage renal disease; N25.81 Secondary hyperparathyroidism of renal origin; Z68.41 Body mass index [BMI] 40.0-44.9, adult; C55 Malignant neoplasm of uterus, part unspecified; C53.9 Malignant neoplasm of cervix uteri, unspecified; E83.41 Hypermagnesemia; E87.79 Other fluid overload; N93.8 Other specified abnormal uterine and vaginal bleeding; Z91.15 Patient's noncompliance with renal dialysis; Z99.2 Dependence on renal dialysis; I25.10 Atherosclerotic heart disease of native coronary artery without angina pectoris; E78.5 Hyperlipidemia, unspecified; Z90.710 Acquired absence of both cervix and uterus; Z90.79 Acquired absence of other genital organ(s); Z90.722 Acquired absence of ovaries, bilateral; E87.5 Hyperkalemia; Z95.5 Presence of coronary angioplasty implant and graft
CPT/HCPCS: 36415; 36416; 36430; 51701; 71010; 74176; 80048; 80053; 81003; 81015; 82010; 82330; 82553; 82803; 83690; 83735; 83880; 84100; 84484; 85025; 85610; 85730; 86850; 86900; 86901; 87340; 90935; 93005; 93306; 96365; 96375; A4353; G0257; J1815; J2270; J7050; P9016

== ENCOUNTER 2017-03-09 01:35 | Inpatient (IN) | payer MEDICARE ==
[2017-03-09 03:18] LABS: PTT 58.3 SEC (22.9-36.1); Prothrombin Time 32.1 SEC (12.0-14.7)
[2017-03-09 03:28] LABS: ALT (SGPT) 12 U/L (8-55); AST (SGOT) 18 U/L (5-34); Albumin 2.8 g/dL (3.4-4.8); Alkaline Phosphatase 91 U/L (40-150); Anion Gap 22 mmol/L (10-20); BUN (Urea Nitrogen) 60 mg/dL (9.8-20.1); Bilirubin, Total 0.5 mg/dL (0.2-1.2); CK (CPK) 82 U/L (29-168); Calc. Creatinine Clearance 0 mL/min (70-130); Calcium 8.7 mg/dL (7.8-10.44); Carbon Dioxide 19 mmol/L (23-31); Chloride 94 mmol/L (98-107); Estimated GFR-MDRD 7; Glucose 113 mg/dL (80-115); Lipase 4 U/L (8-78); Potassium 5.6 mmol/L (3.5-5.1); Protein, Total 5.8 g/dL (6.0-8.3); Sodium 129 mmol/L (136-145)
[2017-03-09 03:31] LABS: CKMB 2.1 ng/mL (0-6.6); Troponin I 0.088 ng/mL (< 0.028)
[2017-03-09 03:38] LABS: #Lymphocytes 0.2 thou/uL (1.20-3.40); #Monocytes 0.2 thou/uL (0.11-0.59); %Basophils 0.6 % (0.0-1.0); %Eosinophils 0.5 % (0.0-10.0); %Lymphocytes 2.9 % (21.0-51.0); %Monocytes 2.9 % (0.0-10.0); %Neutrophils 93.2 % (42.0-75.0); Hemoglobin 9.4 g/dL (12.0-16.0); Mean Corpuscular HGB CONC 32.3 g/dL (32.0-36.0); Mean Corpuscular Hemoglobin 30.9 pg (27.0-31.0); Mean Corpuscular Volume 95.9 fl (81.0-99.0); Mean Platelet Volume 7.5 fL (7.4-10.4); PLT Morphology Comment Appears Decreased; Platelet Count 116 thou/uL (130-400); Red Blood Cell (RBC) Count 3.04 mill/uL (4.20-5.40); White Blood Cell (WBC) Count 7.6 thou/uL (4.8-10.8)
[2017-03-09] MEDS ORDERED: Sodium Bicarb 50 MEQ/50 ML Abboject 8.4% SYRINGE ONE (04:35)
[2017-03-09] MEDS ORDERED: Ondansetron HCl/PF 4 MG/2 ML Vial IVP PRN (06:32)
[2017-03-09] MEDS ORDERED: Ondansetron ODT 4 MG TAB PO PRN ×2 (06:32→09:05)
[2017-03-09 06:33] LABS: Troponin I 0.104 ng/mL (< 0.028)
[2017-03-09] MEDS ORDERED: Heparin 10,000 UNITS/ 10 ML VIAL ONE (06:35)
--- NOTE | 2017-03-09 07:52 | RAD ---
PORTABLE CHEST 1 VIEW: DATE: 03/09/17. TIME: 1:59 a.m. HISTORY: Dyspnea, chronic renal failure. The patient missed his dialysis. COMPARISON: Comparison is made with the exam of 01/28/17. There has been interval placement of a right internal jugular Port-A-Cath with tip in the projection of the SVC. Left subclavian vascular stent remains in place. The left subclavian central line noted on the previous exam has been removed in the interim. The heart size is mildly enlarged. The lungs are expanded without confluent areas of consolidation, pneumothoraces, jose pulmonary edema, or ple ural effusions. IMPRESSION: No acute process. POS: [facility]
[2017-03-09] MEDS ORDERED: Acetaminophen 650 MG Suppository PR PRN (09:05)
[2017-03-09] MEDS ORDERED: Bisacodyl 5 MG TAB PO PRN (09:05)
[2017-03-09] MEDS ORDERED: cloNIDine 0.1 MG TAB PO PRN (09:13)
[2017-03-09 09:24] LABS: Troponin I 0.105 ng/mL (< 0.028)
[2017-03-09 09:56] LABS: Hep B Surf Ag Non-Reactive S/CO (NonReactive)
[2017-03-09] MEDS ORDERED: Heparin 1,000 UNITS/ML VIAL ONE (11:11)
--- NOTE | 2017-03-09 11:51 | CON ---
DATE OF CONSULTATION: 03/09/2017 NEPHROLOGY CONSULTATION REASON FOR CONSULTATION: Hyperkalemia. HISTORY OF PRESENT ILLNESS: This is a very pleasant 61-year-old female with a history of uterine can cer and is status post radiation therapy, presented to the hospital after missing dialysis. The ivan ent was unable to ambulate and history of DVT. The patient denies any nausea or vomiting, but has vidal d some confusion. PAST MEDICAL HISTORY: Significant for end-stage renal disease, hypertension, history of bacteremia, history of coronary artery disease, diabetes mellitus, obesity, lymphedema, chronic ulcer, breast red uction, hysterectomy, appendectomy, hernia surgery, cardiac stent placement, history of uterine cance r status post radiation and chemotherapy. ALLERGIES: Reviewed. HOME MEDICATIONS: List reviewed. FAMILY HISTORY: Negative for ESRD. REVIEW OF SYSTEMS: A 15 point review of systems was performed and was negative except for positives noted above. GENERAL: Weakness- HEAD: Headache- NECK: No swelling or lumps. NOSE: No epistaxis or discharge. EYES: No diplopia or pain. RESPIRATORY: Dyspnea- CARDIOVASCULAR: Chest pain- GASTROINTESTINAL: Nausea- /ROUGH ROUNDER MACHINE: Hematuria- MUSCULOSKELETAL: No joint pain. NEUROPSYCHIATIC SYSTEMS: No suicidal ideation. No ideation. SKIN: Denies any rash or ulcer. CONSTITUTIONAL: No fever or chills. PHYSICAL EXAMINATION: GENERAL: Patient is awake, alert. VITAL SIGNS: Afebrile, pulse 81, breathing at 16, blood pressure 152/66. HEAD/NECK: Normocephalic. Atraumatic. EYES: EOMI. No deformity. EARS: Clear. No ulcers. NOSE: Intact. No lesions. MOUTH: Clear. No discharge. THROAT: Clear. No exudate. LUNGS: Clear. No crackles. CARDIAC: S1, S2. No rub. ABDOMEN: Benign. BS+. GENITALIA/RECTUM: Khan absent. BACK/EXTREMITIES: Edema 0+ Ulcer- NEUROLOGICAL: Alert and motor intact. SKIN: Rash- Bruise- LYMPHATICS: Edema- Ulcer- LABORATORY DATA: Show potassium 5.6. Hemoglobin 9.4. ASSESSMENT AND PLAN: 1. Metabolic acidosis, plan dialysis. 2. Stage 6 chronic kidney disease. We will plan dialysis. 3. Anemia, stable. 4. Hypertension, stable. 5. Medications based on glomerular filtration rate are appropriate.
[2017-03-09] MEDS: Sevelamer Carbonate 800 MG TAB PO SCH ×2 (12:00→18:24)
--- NOTE | 2017-03-09 12:24 | HP ---
PRIMARY CARE PHYSICIAN: [facility]. CHIEF COMPLAINT: Confusion. HISTORY OF PRESENT ILLNESS: This is a 61-year-old white female with known history of end-stage renal disease and recurrent cervical carcinoma. She was seen here on 01/27/2017 with recurrent bleeding a nd had transfusion and then was transferred to [facility] via ambulance due to contin ued bleeding from her friable vaginal cuff. Apparently at [facility], the patient was kept in the hospital until this past 03/05/2017. In the hospital, she was diagnosed with a DVT. Kraig valladares was also diagnosed for her recurrence cervical cancer, she was given chemotherapy which ended on and given radiation treatments which apparently were supposed to continue until Sunday, but per her report, she was kicked out of the hospital on Sunday, even though she had not finished her treatm ents. Patient reports that she did not have any physical therapy at [facility]. She reports that they told her that she was unwilling to cooperate, but she reports that no one would ever come t o her room to do physical therapy. She states she does not have any pain in her left leg from the DV T, though she has continued swelling, but she has not been ambulating at all. She went home and was not ambulatory and so did not notice her dialysis this past week and then at home, the patient was no mariah to be confused by her nephew who takes care of her, so he called an ambulance today and brought i n. In the emergency room, the EMS reported that the patient had been weak and lethargic. When she g ot to the emergency room, she was improved. She was noted to have hyperkalemia in the emergency room at 5.6 as well as to be clinically volume overloaded, so she is being admitted for dialysis. Nathalie quintanilla also had an elevated INR of 3.0. The patient reports that she was given some sort of injectable an ticoagulant from the [facility] in [place] when she was discharged, she has not noted that she is on w arfarin, but states she is not certain what they were giving her in the hospital. PAST MEDICAL HISTORY: 1. End-stage renal disease on dialysis. 2. Coronary artery disease with previous stent. 3. Hypertension. 4. Diabetes mellitus type 2, insulin-dependent. 5. Dyslipidemia. 6. Cervical and/or uterine cancer, status post hysterectomy and chemotherapy in 2015. 7. Chronic anemia. 8. Chronic lower extremity ulcers. 9. Left lower extremity deep venous thrombosis. PAST SURGICAL HISTORY: 1. Breast reduction. 2. Hysterectomy with oophorectomy. 3. Appendectomy. 4. Hernia repair. 5. Cardiac stent placement. ALLERGIES: 1. LEVOFLOXACIN. 2. FLAGYL. MEDICATIONS: Patient does not know her current medications, is not aware why she was discharged from [facility], though she does state she had injectable anticoagulant. We will have to request records from [facility] for her discharge medication list. Of note, when she was last in the [facility], she was on, 1. Lantus 35 units in the morning and 20 units at night. 2. Protonix 40 mg daily. 3. Renvela 800 mg 3 times a day. 4. Hydralazine 50 mg 3 times a day. 5. Clonidine 0.1 mg as needed. 6. Carvedilol 6.25 mg twice a day. 7. Atorvastatin 20 mg at night. 8. Amitriptyline 75 mg at night. 9. Tramadol as needed for pain. FAMILY HISTORY: Significant for heart disease. SOCIAL HISTORY: Patient lives at home with her nephew as her primary caregiver. No history of tobac co, alcohol or illicit drug use. REVIEW OF SYSTEMS: Constitutional: No fevers or chills. She has had some generalized weakness. Ey es: No double vision or blurred vision. ENT: No congestion, drainage or sore throat. Pulmonary: No coughing, wheezing or shortness breath. Cardiovascular: No chest pain, no palpitations or racing heart. Gastrointestinal: No abdominal pain, no nausea or vomiting, no constipation. She did have a little diarrhea in the emergency room after she was given some Kayexalate. Genitourinary: No furt her vaginal bleeding. She produces very little urine, has not had any dysuria. Musculoskeletal: No muscle aches or joint pains, no continued pain in her left lower extremity. She has had continued s welling in her left lower extremity that comes and goes. Skin: No rashes or other lesions she is not ed. Neurologic: No numbness, tingling or focal weakness. PHYSICAL EXAMINATION: VITAL SIGNS: Blood pressure 117/41, pulse 89, respirations 16, and O2 sat 99% on 2 liters, temperatu re 99.2. GENERAL: This is a well-developed, obese white female, in no apparent distress. HEENT: Pupils equal, round, and reactive to light. Oropharynx clear without lesions, erythema or ex udate. NECK: Supple, no lymphadenopathy, no thyroid nodules or enlargement. HEART: Regular rate and rhythm, no murmurs, rubs or gallops. LUNGS: Clear to auscultation bilaterally, no wheezes, crackles or rhonchi. ABDOMEN: Soft, nontender to palpation, normoactive bowel sounds, no hepatosplenomegaly or other mass es. EXTREMITIES: No clubbing or cyanosis. She does have 3+ pitting edema on the left lower extremity at the foot and the leg. No significant tenderness, no erythema noted. SKIN: No rashes or lesions noted. NEUROLOGIC: She moves all extremities with equal strength and has no facial droop. PSYCHIATRIC: Alert and oriented x3, normal mood and affect. LABORATORY DATA AND IMAGING: CBC, white blood cell count 7.6, hemoglobin 9.4, hematocrit 29.2, garett l MCV, platelet count 116, neutrophils 93%. Coagulation profile with PT of 32 and INR 3.0 and aPTT o f 58.3. Complete metabolic panel is notable for a sodium of 129, potassium 5.6, chloride 94, bicarbo bg 19, anion gap 22, BUN 60, creatinine 6.42 and albumin of 2.8 and total serum protein of 5.8, rem ainder is normal. Troponins were indeterminate at 0.088 and 0.104, which is actually lower than her last admission when they were elevated at 2 and 3. Brain natriuretic peptide was 2764, which is cons istent with her last reading in January. Chest x-ray: I did review [facility] along with the radiologist's report. There is no infiltrate, no pulmonary edema or other acute process visualized. EKG: I did review the EKG done in the emergency room, it does shows sinu s tachycardia with some inverted T waves in the lateral leads. No acute ST changes, no sequelae of h yperkalemia. ASSESSMENT AND PLAN: 1. End-stage renal disease with hyperkalemia and volume overload. Patient needs dialysis. She has missed for the last 2 times during this week, so Dr. Medina has been consulted. She will receive dialy sis. She already got Kayexalate in the emergency room. She does not appear clinically stable at thi s point and we have to wait for dialysis without any changes on EKG. 2. Deep venous thrombosis diagnosed in [place] on some sort of anticoagulants, appears to be on warf morales per her INR, we will get her discharge medication list from [facility] and we will continue check ing PT/INR daily. For now, she is sufficiently anticoagulated and can restart some warfarin in a day or two once the number comes down a bit. The patient will need physical therapy to start getting he r up and moving around. Suspect that she may have been reluctant to ambulate with physical therapy a [facility]. We will see if she is able to ambulate with them here. 3. Physical debilitation with inability to walk. The patient will likely need fpc facil ity placement. Apparently, there is some issue with her at [place], she had not yet finished her rad iation therapy. Given that she has already missed the remainder of her doses now and is no longer re ceiving any, it should not be a problem to get her into a fpc facility at this time, so t hat she can continue physical therapy and get her dialysis regularly to prevent readmission. 4. Recurrent cervical/uterine cancer. The patient has finished her chemotherapy, did not miss a wee k of her radiation therapy. We will have her follow up with her Hematology/Oncologist in [place] or [place]. 5. Hypertension. We will resume patient's antihypertensive. 6. Diabetes mellitus type 2, insulin-dependent. We will resume patient's Lantus and check her finge rstick blood sugars regularly with meals. 7. Deep venous thrombosis prophylaxis. Patient is already on anticoagulation. 8. Gastrointestinal prophylaxis. We will resume patient's Protonix. 9. Code status. I did discuss this with the patient. She is a FULL CODE. Should she be incapacita mariah, she states that her nephew would be her medical power of environmental attorney, his name is Karthik Mckayla.
[2017-03-09] MEDS: hydrALAZINE 25 MG TAB PO SCH ×2 (16:03→21:31)
[2017-03-09] MEDS ORDERED: Non-Formulary Item 1 EACH (Insulin Glargine,Hum.Rec.Anlog 20 UNIT) SQ SCH (21:00)
[2017-03-09] MEDS ORDERED: Famotidine 20 MG TAB PO SCH (21:00)
[2017-03-09] MEDS: Amitriptyline HCl 25 MG TAB PO SCH (21:29)
[2017-03-09] MEDS: Carvedilol 6.25 MG TAB PO SCH (21:30)
[2017-03-09] MEDS: Atorvastatin Calcium 20 MG TAB PO SCH (21:30)
[2017-03-09] MEDS: Insulin Detemir 100 UNITS/ML 20 UNITS in Pre-Filled Syringe 1 EACH SC SCH (21:32)
[2017-03-10 06:21] LABS: INR-International Normal Ratio 2.2; Prothrombin Time 25.1 SEC (12.0-14.7)
[2017-03-10 06:28] LABS: #Eosinphils 0.1 thou/uL (0.0-0.7); #Lymphocytes 0.3 thou/uL (1.20-3.40); #Monocytes 0.3 thou/uL (0.11-0.59); #Neutrophils 4.4 thou/uL (1.40-6.50); %Basophils 0.1 % (0.0-1.0); %Eosinophils 1.3 % (0.0-10.0); %Lymphocytes 5.7 % (21.0-51.0); %Monocytes 5.3 % (0.0-10.0); %Neutrophils 87.6 % (42.0-75.0); Hemoglobin 7.6 g/dL (12.0-16.0); Mean Corpuscular HGB CONC 32.6 g/dL (32.0-36.0); Mean Corpuscular Hemoglobin 31.9 pg (27.0-31.0); Mean Corpuscular Volume 97.9 fl (81.0-99.0); Mean Platelet Volume 8.3 fL (7.4-10.4); Platelet Count 98 thou/uL (130-400); RBC Distribution Width 16.3 % (11.5-14.5); Red Blood Cell (RBC) Count 2.38 mill/uL (4.20-5.40)
[2017-03-10 06:41] LABS: Anion Gap 16 mmol/L (10-20); BUN (Urea Nitrogen) 36 mg/dL (9.8-20.1); Calc. Creatinine Clearance 23 mL/min (70-130); Calcium 7.9 mg/dL (7.8-10.44); Carbon Dioxide 24 mmol/L (23-31); Chloride 98 mmol/L (98-107); Estimated GFR-MDRD 10; Glucose 118 mg/dL (80-115); Potassium 3.5 mmol/L (3.5-5.1); Sodium 134 mmol/L (136-145)
[2017-03-10] MEDS: Carvedilol 6.25 MG TAB PO SCH ×2 (08:25→21:22)
[2017-03-10] MEDS: Sevelamer Carbonate 800 MG TAB PO SCH ×3 (08:26→18:04)
[2017-03-10] MEDS: hydrALAZINE 25 MG TAB PO SCH ×4 (08:59→21:23)
[2017-03-10] MEDS: Insulin Detemir 100 UNITS/ML 35 UNITS in Pre-Filled Syringe 1 EACH SC SCH (08:59)
[2017-03-10] MEDS ORDERED: Non-Formulary Item 1 EACH (Insulin Glargine,Hum.Rec.Anlog 35 UNIT) SQ SCH (09:00)
--- NOTE | 2017-03-10 12:11 | EKG ---
Test Reason : MISSED DIALYSIS Blood Pressure : / mmHG Vent. Rate : 111 BPM Atrial Rate : 111 BPM P-R Int : 166 ms QRS Dur : 096 ms QT Int : 324 ms P-R-T Axes : 070 055 153 degrees QTc Int : 440 ms Sinus tachycardia T wave abnormality, consider inferolateral ischemia Abnormal ECG Confirmed by MARIALUISA GIFFORD, RUY ([id number]), state editor CONOR CASTILLO ([id number]) on 03/10/2017 12:10:34 PM Referred By: RE Confirmed By:RUY ELAM MD
--- NOTE | 2017-03-10 12:28 | PRG ---
DATE OF SERVICE: 03/10/2017 SUBJECTIVE: This is a 61-year-old female being seen for end-stage renal disease. The patient denies any nausea, vomiting or chest pain. PHYSICAL EXAMINATION: GENERAL: Patient is awake, alert. VITAL SIGNS: Afebrile, pulse 76, breathing at 16, blood pressure 132/62. HEAD/NECK: Normocephalic. Atraumatic. EYES: EOMI. No deformity. EARS: Clear. No ulcers. NOSE: Intact. No lesions. MOUTH: Clear. No discharge. THROAT: Clear. No exudate. LUNGS: Clear. No crackles. CARDIAC: S1, S2. No rub. ABDOMEN: Benign. BS+. GENITALIA/RECTUM: Khan absent. BACK/EXTREMITIES: Edema 0+ Ulcer- NEUROLOGICAL: Alert and motor intact. SKIN: Rash- Bruise- LYMPHATICS: Edema- Ulcer- LABORATORY DATA: Show hemoglobin 7.6. ASSESSMENT AND RECOMMENDATIONS: 1. Stage 6 chronic kidney disease, continue hemodialysis. 2. Hypertension, stable. 3. Anemia. Plan transfusion with dialysis.
--- NOTE | 2017-03-10 15:22 | PDOC.PN ---
- Subjective Encounter Start Date: 03/10/17 Encounter Start Time: 10:00 CC; Dyspnea Sub: Pt says she feels better, tolerated dialysis last night - Objective Resuscitation Status: Resuscitation Status FULL:Full Resuscitation Vital Signs & Weight: Vital Signs (12 hours) Temp Pulse Pulse Resp BP BP BP 03/10/17 15:03 98.3 F 76 18 136/42 L 03/10/17 14:45 97.9 F 78 18 127/37 L 03/10/17 11:33 98.5 F 78 17 03/10/17 09:20 136/62 03/10/17 08:25 116/54 L 03/10/17 07:15 97.7 F 76 18 03/10/17 04:00 99.6 F 84 16 BP Pulse Ox 03/10/17 15:03 03/10/17 14:45 03/10/17 11:33 140/56 L 100 03/10/17 09:20 03/10/17 08:25 03/10/17 07:15 132/61 99 03/10/17 04:00 129/55 L 100 Weight Admit Weight 246 lb 14.4 oz Weight 246 lb 14.4 oz I&O: 03/09/17 03/10/17 03/11/17 06:59 06:59 06:59 Intake Total 1200 0 Output Total 2800 Balance -1600 0 Result Diagrams: 03/10/17 05:45 03/10/17 05:45 Additional Labs: Accuchecks 03/10/17 03/09/17 03/09/17 05:41 20:19 16:05 POC Glucose 129 H 175 H 114 H Phys Exam - Physical Examination Constitutional: NAD HEENT: moist MMs Neck: no JVD Respiratory: no wheezing diminished at bases, no rhonchi, no wheezing Cardiovascular: RRR, no significant murmur, no rub no gallop Gastrointestinal: soft, non-tender distended, no guarding, no rebound tenderness positive edema Psychiatric: A&O x 3 Skin: no rash Dx/Plan - Plan * . Pt is 61 yrs old female now admitted to hospital due to dyspnea 1. ESRD + Metabolic acidosis + Hyperkalemia : Nephro on board tolerated hd yesterday Repeat HD today per home schedule K& Bicarb level improved 2. H/O DVT: INR therapeutic. Per pt taking injections for dvt as oupt. Might be arixtra. While in hospital will start arixtra 2.5mg po bid untill pt found her home medication 3. HTN: Monitor bp closely Continue home meds. 4. H/O DM type 2: Monitor blood sugars closely continue insulin sliding scale Case d/w pt & RN
[2017-03-10] MEDS: Amitriptyline HCl 25 MG TAB PO SCH (21:21)
[2017-03-10] MEDS: Apixaban 5 MG TAB PO SCH (21:22)
[2017-03-10] MEDS: Atorvastatin Calcium 20 MG TAB PO SCH (21:22)
[2017-03-10] MEDS: Acetaminophen 325 MG TAB PO PRN (21:23)
[2017-03-10] MEDS: Insulin Detemir 100 UNITS/ML 20 UNITS in Pre-Filled Syringe 1 EACH SC SCH (21:23)
[2017-03-11 06:41] LABS: INR-International Normal Ratio 1.5; Prothrombin Time 18.9 SEC (12.0-14.7)
[2017-03-11] MEDS: Apixaban 5 MG TAB PO SCH ×2 (09:42→21:38)
[2017-03-11] MEDS: Carvedilol 6.25 MG TAB PO SCH ×2 (09:42→21:40)
[2017-03-11] MEDS: Sevelamer Carbonate 800 MG TAB PO SCH ×3 (09:42→15:56)
[2017-03-11] MEDS: hydrALAZINE 25 MG TAB PO SCH ×3 (09:43→21:39)
[2017-03-11] MEDS: Insulin Detemir 100 UNITS/ML 35 UNITS in Pre-Filled Syringe 1 EACH SC SCH (09:43)
[2017-03-11] MEDS: Acetaminophen 325 MG TAB PO PRN (10:20)
[2017-03-11] MEDS: HYDROcodone/Acetaminophen 5/325 mg Tablet PO PRN ×2 (11:45→21:38)
--- NOTE | 2017-03-11 11:50 | PRG ---
DATE OF SERVICE: 03/11/2017 SUBJECTIVE: This 61-year-old female being seen for end-stage renal disease. The patient denies any nausea, vomiting or chest pain. PHYSICAL EXAMINATION: GENERAL: Patient is awake, alert. VITAL SIGNS: Afebrile, pulse 70, breathing at 16, blood pressure 130/57. HEAD/NECK: Normocephalic. Atraumatic. EYES: EOMI. No deformity. EARS: Clear. No ulcers. NOSE: Intact. No lesions. MOUTH: Clear. No discharge. THROAT: Clear. No exudate. LUNGS: Clear. No crackles. CARDIAC: S1, S2. No rub. ABDOMEN: Benign. BS+. GENITALIA/RECTUM: Khan absent. BACK/EXTREMITIES: Edema 0+ Ulcer- NEUROLOGICAL: Alert and motor intact. SKIN: Rash- Bruise- LYMPHATICS: Edema- Ulcer- LABORATORY DATA: Show hemoglobin is pending. ASSESSMENT AND RECOMMENDATIONS: 1. Stage 6 chronic kidney disease. Continue hemodialysis. 2. Hypertension, stable. 3. Anemia, status post transfusion. Continue Epogen. 4. Medications based on glomerular filtration rate are appropriate.
--- NOTE | 2017-03-11 14:32 | PDOC.PN ---
- Subjective Encounter Start Date: 03/11/17 Encounter Start Time: 14:31 CC; Dyspnea Sub: Pt denies dyspnea - Objective Resuscitation Status: Resuscitation Status FULL:Full Resuscitation Vital Signs & Weight: Vital Signs (12 hours) Temp Pulse Resp BP BP Pulse Ox 03/11/17 11:16 98.0 F 76 16 130/57 L 98 03/11/17 09:43 78 127/59 L 03/11/17 09:42 127/59 L 03/11/17 09:37 99.9 F H 78 18 127/59 L 97 03/11/17 08:00 99.9 F H 78 18 97 03/11/17 04:45 99 03/11/17 04:00 97.8 F 77 15 134/60 99 Weight Admit Weight 246 lb 14.4 oz Weight 225 lb 9.6 oz I&O: 03/10/17 03/11/17 03/12/17 06:59 06:59 06:59 Intake Total 1200 1550 Output Total 2800 3150 Balance -1600 -1600 Result Diagrams: 03/10/17 05:45 03/10/17 05:45 Additional Labs: Accuchecks 03/11/17 03/11/17 03/10/17 11:21 05:45 19:48 POC Glucose 112 H 125 H 248 H 03/10/17 03/10/17 18:15 11:31 POC Glucose 281 H 201 H Dx/Plan - Plan Physical Examination Constitutional: NAD, lying on bed HEENT: moist MMs Neck: no JVD Respiratory: no wheezingdiminished at bases, no rhonchi, no wheezing Cardiovascular: RRR, no significant murmur, no rub no gallop Gastrointestinal: soft, non-tender distended, no guarding, no rebound tenderness positive edema Psychiatric: A&O x 3 Skin: no rash Dx/Plan Pt is 61 yrs old female now admitted to hospital due to dyspnea 1. ESRD + Metabolic acidosis + Hyperkalemia : Nephro on board tolerated hd yesterday next hd on sunday K& Bicarb level improved 2. H/O DVT: INR therapeutic. Per pt taking injections for dvt as oupt. Might be arixtra. continue eliquis 2.5mg po bid 3. HTN: Monitor bp closely Continue home meds. 4. H/O DM type 2: Monitor blood sugars closely continue insulin sliding scale 5. DISPO: Might need SNF. Will consult PT/OT to evaluate patient Case d/w pt & RN
[2017-03-11] MEDS ORDERED: Dextrose 50% Abboject 50 ML SYRINGE ONE (17:32)
[2017-03-11] MEDS: Amitriptyline HCl 25 MG TAB PO SCH (21:39)
[2017-03-11] MEDS: Atorvastatin Calcium 20 MG TAB PO SCH (21:40)
[2017-03-11] MEDS: Insulin Detemir 100 UNITS/ML 20 UNITS in Pre-Filled Syringe 1 EACH SC SCH (21:41)
[2017-03-12] MEDS: Ondansetron HCl/PF 4 MG/2 ML Vial IVP PRN (02:38)
[2017-03-12 06:06] LABS: #Eosinphils 0.1 thou/uL (0.0-0.7); #Lymphocytes 0.4 thou/uL (1.20-3.40); #Monocytes 0.2 thou/uL (0.11-0.59); #Neutrophils 5.1 thou/uL (1.40-6.50); %Eosinophils 1.2 % (0.0-10.0); %Lymphocytes 6.5 % (21.0-51.0); %Monocytes 3.9 % (0.0-10.0); %Neutrophils 88.4 % (42.0-75.0); Hemoglobin 9.5 g/dL (12.0-16.0); Mean Corpuscular HGB CONC 33.2 g/dL (32.0-36.0); Mean Corpuscular Hemoglobin 31.6 pg (27.0-31.0); Mean Corpuscular Volume 95.1 fl (81.0-99.0); Mean Platelet Volume 7.9 fL (7.4-10.4); Platelet Count 118 thou/uL (130-400); RBC Distribution Width 15.8 % (11.5-14.5); Red Blood Cell (RBC) Count 3.01 mill/uL (4.20-5.40); White Blood Cell (WBC) Count 5.8 thou/uL (4.8-10.8)
[2017-03-12 06:09] LABS: INR-International Normal Ratio 1.8; Prothrombin Time 21.6 SEC (12.0-14.7)
[2017-03-12 06:32] LABS: Anion Gap 12 mmol/L (10-20); BUN (Urea Nitrogen) 27 mg/dL (9.8-20.1); Calc. Creatinine Clearance 24 mL/min (70-130); Calcium 8.3 mg/dL (7.8-10.44); Carbon Dioxide 26 mmol/L (23-31); Chloride 95 mmol/L (98-107); Estimated GFR-MDRD 12; Potassium 3.2 mmol/L (3.5-5.1); Sodium 130 mmol/L (136-145)
[2017-03-12] MEDS: HYDROcodone/Acetaminophen 5/325 mg Tablet PO PRN ×3 (06:37→20:33)
[2017-03-12 06:39] LABS: Glucose 53 mg/dL (80-115)
[2017-03-12] MEDS: Apixaban 5 MG TAB PO SCH ×2 (09:15→20:23)
[2017-03-12] MEDS: hydrALAZINE 25 MG TAB PO SCH ×3 (09:16→20:09)
[2017-03-12] MEDS: Carvedilol 6.25 MG TAB PO SCH ×2 (09:16→20:28)
[2017-03-12] MEDS: Sevelamer Carbonate 800 MG TAB PO SCH ×3 (09:17→18:16)
[2017-03-12] MEDS: Insulin Detemir 100 UNITS/ML 35 UNITS in Pre-Filled Syringe 1 EACH SC SCH (09:17)
--- NOTE | 2017-03-12 11:57 | PRG ---
DATE OF SERVICE: 03/12/2017 SUBJECTIVE: Patient was seen and examined at bedside and overnight events noted. Patient denies any shortness of breath or chest pain or palpitation. No history of nausea or vomiting or diarrhea or f ever or chills or cramps. OBJECTIVE: GENERAL: This is an obese female in no apparent distress. VITAL SIGNS: Temperature 98, pulse 85, respirations 18, and blood pressure 136/62. HEENT: Atraumatic, normocephalic. Oral mucosa is moist. NECK: Supple. CARDIOVASCULAR: S1, S2 heard. Rate and rhythm regular. RESPIRATORY: Clear to auscultation. GASTROINTESTINAL: Abdomen is soft. MUSCULOSKELETAL: No tenderness. No edema. DERMATOLOGIC : No skin rash. NEUROLOGIC: Alert and awake and oriented x3. No focal neurologic deficits. Moving all the extremit ies. PSYCHIATRIC: Mood and affect normal LABORATORY DATA: Potassium is 3.8, BUN 27, creatinine 3.9. ASSESSMENT AND PLAN: 1. End-stage renal disease, currently on hemodialysis. 2. Hypertension. 3. Edema, we will give extra dialysis. 4. Cardiorenal syndrome. 5. Anemia. Plan is to have excess session of dialysis for 3 hours today.
--- NOTE | 2017-03-12 15:27 | PDOC.PN ---
- Subjective Encounter Start Date: 03/12/17 Encounter Start Time: 15:37 Subjective: Reports no complaints. No dizziness. -: No acute events overnight. - Objective Resuscitation Status: Resuscitation Status FULL:Full Resuscitation MAR Reviewed: Yes Vital Signs & Weight: Vital Signs (12 hours) Temp Pulse Pulse Pulse Resp BP BP 03/12/17 11:12 98.4 F 69 15 03/12/17 09:16 84 136/62 03/12/17 09:10 98.1 F 84 16 03/12/17 08:50 84 136/62 03/12/17 08:23 98.1 F 102 H 18 03/12/17 08:17 86 90 125/70 03/12/17 04:00 98.2 F 72 18 BP BP BP Pulse Ox Pulse Ox Pulse Ox 03/12/17 11:12 131/59 L 98 03/12/17 09:16 03/12/17 09:10 136/62 97 03/12/17 08:50 03/12/17 08:23 164/80 H 97 03/12/17 08:17 138/64 99 99 03/12/17 04:00 129/59 L 99 Weight Admit Weight 246 lb 14.4 oz Weight 227 lb 1 oz I&O: 03/11/17 03/12/17 03/13/17 06:59 06:59 06:59 Intake Total 1550 1110 Output Total 3150 Balance -1600 1110 Result Diagrams: 03/12/17 04:40 03/12/17 04:40 Additional Labs: Accuchecks 03/12/17 03/12/17 03/12/17 11:27 05:47 01:55 POC Glucose 71 67 L 93 03/11/17 03/11/17 03/11/17 20:08 17:47 17:34 POC Glucose 86 160 H 41 L* Phys Exam - Physical Examination Constitutional: NAD HEENT: PERRLA, moist MMs, sclera anicteric Neck: supple, full ROM Respiratory: no wheezing, no rales, no rhonchi, clear to auscultation bilateral Cardiovascular: RRR, no significant murmur, no rub Gastrointestinal: soft, non-tender, no distention, positive bowel sounds Musculoskeletal: pulses present, edema present (worse on LLE (old DVT site)) Neurological: non-focal, normal sensation Psychiatric: normal affect, A&O x 3 Skin: no rash, normal turgor Dx/Plan (1) ESRD (end stage renal disease) on dialysis Code(s): N18.6 - END STAGE RENAL DISEASE; Z99.2 - DEPENDENCE ON RENAL DIALYSIS Status: Chronic Plan: Continue current management Comment: On TTS schedule. Missed some sessions before this admission (2) Hyperkalemia Code(s): E87.5 - HYPERKALEMIA Status: Resolved Plan: Monitor. 2/2/ ESRD. (3) Metabolic acidosis Code(s): E87.2 - ACIDOSIS Status: Resolved Comment: 2/2 ESRD. HD per nephrology. (4) History of DVT (deep vein thrombosis) Code(s): Z86.718 - PERSONAL HISTORY OF OTHER VENOUS THROMBOSIS AND EMBOLISM Status: Acute Plan: Continue current management Comment: On AC w Eliquis. (5) Coronary artery disease Code(s): I25.10 - ATHSCL HEART DISEASE OF [place] CORONARY ARTERY W/O ANG PCTRS Status: Chronic Qualifiers: Coronary Disease-Associated Artery/Lesion type: unspecified vessel or lesion type [place] vs. transplanted heart: [place] heart Associated angina: without angina Qualified Code(s): I25.10 - Atherosclerotic heart disease of [place] coronary artery without angina pectoris Comment: Stable, chest pain free. COntinue home regimen. (6) Hypertension Code(s): I10 - ESSENTIAL (PRIMARY) HYPERTENSION Status: Chronic Qualifiers: Hypertension type: essential hypertension Qualified Code(s): I10 - Essential (primary) hypertension Plan: Continue current management Comment: Fairly well controlled. (7) Diabetes mellitus Code(s): E11.9 - TYPE 2 DIABETES MELLITUS WITHOUT COMPLICATIONS Status: Chronic Qualifiers: Diabetes mellitus complication status: with kidney complications Diabetes mellitus complication detail: with chronic kidney disease Chronic kidney disease stage: on chronic dialysis Comment: on SSI Long acting insulin discontinued 2/2 hypoglycemia. (8) Hypoglycemia Code(s): E16.2 - HYPOGLYCEMIA, UNSPECIFIED Status: Resolved Comment: Monitor Hold long acting insulin Start SSI (9) Physical deconditioning Code(s): R53.81 - OTHER MALAISE Status: Acute Comment: Likely 2/2 prolonged hospitalization. Will need [facility] placement. - Plan cont current plan of care, PT/OT, social media community manager * .
[2017-03-12] MEDS ORDERED: Dextrose 50% Abboject 50 ML SYRINGE SLOW IVP PRN (15:30)
[2017-03-12] MEDS ORDERED: Dextrose 5% in Water 1,000 ML IV PRN (15:30)
[2017-03-12] MEDS: Amitriptyline HCl 25 MG TAB PO SCH (20:27)
[2017-03-12] MEDS: Atorvastatin Calcium 20 MG TAB PO SCH (20:28)
[2017-03-13 04:21] LABS: #Eosinphils 0.1 thou/uL (0.0-0.7); #Lymphocytes 0.5 thou/uL (1.20-3.40); #Monocytes 0.3 thou/uL (0.11-0.59); #Neutrophils 5.2 thou/uL (1.40-6.50); %Eosinophils 2.1 % (0.0-10.0); %Lymphocytes 7.5 % (21.0-51.0); %Monocytes 4.7 % (0.0-10.0); %Neutrophils 85.7 % (42.0-75.0); Mean Corpuscular HGB CONC 33.4 g/dL (32.0-36.0); Mean Corpuscular Hemoglobin 31.6 pg (27.0-31.0); Mean Corpuscular Volume 94.7 fl (81.0-99.0); Mean Platelet Volume 8.3 fL (7.4-10.4); Platelet Count 111 thou/uL (130-400); RBC Distribution Width 16.3 % (11.5-14.5); Red Blood Cell (RBC) Count 2.83 mill/uL (4.20-5.40); White Blood Cell (WBC) Count 6.1 thou/uL (4.8-10.8)
[2017-03-13 04:28] LABS: Anion Gap 10 mmol/L (10-20); BUN (Urea Nitrogen) 19 mg/dL (9.8-20.1); Calc. Creatinine Clearance 32 mL/min (70-130); Calcium 8.2 mg/dL (7.8-10.44); Carbon Dioxide 29 mmol/L (23-31); Chloride 97 mmol/L (98-107); Estimated GFR-MDRD 16; Glucose 127 mg/dL (80-115); Potassium 3.5 mmol/L (3.5-5.1); Sodium 132 mmol/L (136-145)
[2017-03-13] MEDS: Carvedilol 6.25 MG TAB PO SCH ×2 (08:31→19:55)
[2017-03-13] MEDS: Ondansetron HCl/PF 4 MG/2 ML Vial IVP PRN (08:32)
[2017-03-13] MEDS: hydrALAZINE 25 MG TAB PO SCH ×3 (08:36→19:55)
[2017-03-13] MEDS: Sevelamer Carbonate 800 MG TAB PO SCH ×3 (08:39→18:27)
--- NOTE | 2017-03-13 09:39 | CON ---
DATE OF CONSULTATION: 03/12/2017 HISTORY OF PRESENT ILLNESS: Yessenia Allen is a 61-year-old female with end-stage renal disease, o n maintenance dialysis, using her left upper arm basilic vein transposition fistula that I placed yea rs ago. 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 The patient was sent to [facility] and underwent radiation and chemo therapy recently. She did not finish her radiation therapy for some unknown reason. She has not had any vaginal bleeding since that time. She states, at that institution, she was not out of bed much and she developed a sacral decubitus and was admitted 03/09/2017 for episode of confusion, hyperkalem ia, volume overloaded because of missing 2 dialysis episodes. She has been admitted for Kayexalate a nd dialysis. She is on Eliquis for DVT, diagnosed in [place], right leg. She is on Eliquis; dose gi mitchell 03/12/2017. I have been consulted regarding her sacral decubitus. Her sacral decubitus has necrotic tissue and is in need of debridement. We will plan this debridemen t in the operating room on Sunday03/14/2017. We will hold her Eliquis. ALLERGIES: LEVOFLOXACIN and METRONIDAZOLE. PAST MEDICAL HISTORY: Anxiety; chronic anemia; dyslipidemia; depression; diabetes mellitus, type 2, insulin-dependent; morbid obesity; metabolic syndrome; hypertension; end-stage renal disease, [facility] dialysis Sunday, Sunday, and Sunday, [facility], followed by Dr. Medina; history o f coronary artery disease; myocardial infarction in 2007, stent placed and followed up with her cardi ologist in [place], now seeing Dr. Armas; uterine cancer, status post radiation and status pos t hysterectomy and chemotherapy in 2014. History of deep venous thrombosis, on Eliquis. PAST SURGICAL HISTORY: Appendectomy 12 years of age; colonoscopy in the past; coronary artery stents , myocardial infarction in 2007; breast reduction, 17 years ago, 05/16/2013; laparoscopic peritoneal dialysis catheter, double-cuffed pigtail, extension set of left upper quadrant; open umbilical hernia repair with 6.4 cm PVP mesh; left arm primary fistula, proximal radial artery, outflow perforating b ranch antecubital vein and outflow basilic and cephalic vein, 3.5 mm coronary dilator; 08/22/2013, ri ght internal jugular vein cuffed-tunneled hemodialysis catheter, left arm basilic vein transposition fistula; 08/26/2013, removal of peritoneal dialysis catheter; 01/08/2015, Dr. Jeff Bruno, EGD and col onoscopies; 01/09/2015, Dr. Jain, completion colonoscopy with small ascending colon polyp, noting sig moid diverticulosis, ulcerations distal rectum consistent with stercoral ulcers; 02/16/2015, removal of right IJ cuffed-tunnel dialysis catheter; 01/28/2017, left subclavian vein triple-lumen catheter p laced for anemia, vaginal bleeding, end-stage renal disease. MEDICATIONS: At home, tramadol, Catapres 0.1 mg p.r.n., Renvela 800 mg t.i.d. with meals, MiraLax 17 grams daily p.r.n., Protonix 40 mg q.24 hours, nitroglycerin p.r.n., insulin 35 units a.m. and 20 un its p.m., carvedilol 6.25 mg b.i.d., calcium carbonate, Tums 1000 mg q.4 hours p.r.n., Lipitor 20 mg at bedtime, Elavil 75 mg at bedtime, Tylenol p.r.n. pain. In the hospital, Cruz has been continue d, but held by the time of this dictation. SOCIAL HISTORY: Patient lives at home with her nephew in the [facility]. Tobacco: None. Alcohol : None. PHYSICAL EXAMINATION: VITAL SIGNS: 5 feet tall, 227 pounds, 44 BMI, 98.3, 85, 20, 144/65. HEAD, EYES, EARS, NOSE, AND THROAT: Unremarkable. LUNGS: Clear to auscultation. CARDIAC: Regular rate and rhythm without murmur, rub, or gallop. ABDOMEN: Soft, obese. Left upper arm basilic vein transposition fistula, good thrill and bruits. BACK: Sacral decubitus for 4 x 6 cm area of eschar. In need of debridement. ASSESSMENT AND PLAN: 1. Sacral decubitus present on this admission. We would recommend debridement in the operating room . We will hold her Cruz. 2. Deep venous thrombosis, on Eliquis. 3. History of endometrial cancer, status post hysterectomy and radiation and chemotherapy. 4. End-stage renal disease, dialyzing in [facility], followed by Dr. Medina. 5. Coronary artery disease, stable. Note this patient was seen and examined 03/12/2017 and date of dictation is 03/13/2017.
--- NOTE | 2017-03-13 11:10 | PDOC.PN ---
- Subjective Encounter Start Date: 03/13/17 Encounter Start Time: 11:14 Subjective: No new complaints. -: No acue events overnight. -: Gen surgery eviewed. Pt to have debridement of sacral decubitus ulcer - Objective Resuscitation Status: Resuscitation Status FULL:Full Resuscitation MAR Reviewed: Yes Vital Signs & Weight: Vital Signs (12 hours) Temp Pulse Resp BP BP Pulse Ox 03/13/17 08:36 73 03/13/17 08:31 119/63 03/13/17 08:25 97.7 F 73 16 110/67 97 03/13/17 08:00 99.2 F 90 16 119/63 93 L 03/13/17 07:22 98.3 F 85 20 03/13/17 04:00 98.3 F 85 20 144/65 H 95 Weight Admit Weight 246 lb 14.4 oz Weight 227 lb 1 oz I&O: 03/12/17 03/13/17 03/14/17 06:59 06:59 06:59 Intake Total 1110 400 Output Total 2000 Balance 1110 -1600 Result Diagrams: 03/13/17 03:41 03/13/17 03:41 Additional Labs: Accuchecks 03/12/17 03/12/17 03/12/17 20:08 18:19 11:27 POC Glucose 146 H 121 H 71 Phys Exam - Physical Examination Constitutional: NAD HEENT: PERRLA, moist MMs, sclera anicteric Neck: supple, full ROM Respiratory: no wheezing, no rales, no rhonchi, clear to auscultation bilateral Cardiovascular: RRR, no significant murmur, no rub Gastrointestinal: soft, non-tender, no distention, positive bowel sounds Obese abdomen Musculoskeletal: no edema, pulses present Neurological: non-focal, moves all 4 limbs Psychiatric: normal affect, A&O x 3 Skin: no rash, normal turgor Deviation from normal: + Sacral decubitus ulcers (pesent on admission) Dx/Plan (1) ESRD (end stage renal disease) on dialysis Code(s): N18.6 - END STAGE RENAL DISEASE; Z99.2 - DEPENDENCE ON RENAL DIALYSIS Status: Chronic Plan: Improving with HD. Continue current mx HD per nephrology. Comment: On TTS schedule. Missed at leas 2 sessions before this admission (2) History of DVT (deep vein thrombosis) Code(s): Z86.718 - PERSONAL HISTORY OF OTHER VENOUS THROMBOSIS AND EMBOLISM Status: Acute Plan: AC being held for planned debridement. Comment: On AC w Cruz. (3) Coronary artery disease Code(s): I25.10 - ATHSCL HEART DISEASE OF [place] CORONARY ARTERY W/O ANG PCTRS Status: Chronic Qualifiers: Coronary Disease-Associated Artery/Lesion type: unspecified vessel or lesion type [place] vs. transplanted heart: [place] heart Associated angina: without angina Qualified Code(s): I25.10 - Atherosclerotic heart disease of [place] coronary artery without angina pectoris Plan: Continue current mx Comment: Stable, chest pain free. COntinue home regimen. (4) Hypertension Code(s): I10 - ESSENTIAL (PRIMARY) HYPERTENSION Status: Chronic Qualifiers: Hypertension type: essential hypertension Qualified Code(s): I10 - Essential (primary) hypertension Plan: Continue current mx Comment: At goal. (5) Diabetes mellitus Code(s): E11.9 - TYPE 2 DIABETES MELLITUS WITHOUT COMPLICATIONS Status: Chronic Qualifiers: Diabetes mellitus complication status: with kidney complications Diabetes mellitus complication detail: with chronic kidney disease Chronic kidney disease stage: on chronic dialysis Plan: IMpoving blood glucose levels. Continue mx. Comment: on SSI Long acting insulin discontinued 2/2 hypoglycemia. (6) Hypoglycemia Code(s): E16.2 - HYPOGLYCEMIA, UNSPECIFIED Status: Resolved Comment: Improving. Long acting insulin being held. Continue SSI (7) Physical deconditioning Code(s): R53.81 - OTHER MALAISE Status: Acute Comment: Likely 2/2 prolonged hospitalization. Will need BLANCA placement. (8) Sacral decubitus ulcer Status: Acute Qualifiers: Pressure ulcer stage: unstageable Qualified Code(s): L89.150 - Pressure ulcer of sacral region, unstageable Comment: Unstageable 2/2 necrotic tissue. Gen Surgery evaluated. Will be taken to OR for debridement. - Plan cont current plan of care, PT/OT * .
[2017-03-13] MEDS: Acetaminophen 325 MG TAB PO PRN (11:23)
[2017-03-13] MEDS: HumaLOG 300 UNITS/3 ML VIAL SC PRN ×2 (12:41→20:00)
[2017-03-13] MEDS: Epoetin (ESRD) 20,000 UNITS/ML IVP SCH (17:07)
--- NOTE | 2017-03-13 19:19 | PRG ---
DATE OF SERVICE: 03/13/2017 SUBJECTIVE: Patient was seen and examined at bedside and overnight events noted. Patient denies any shortness of breath or chest pain or palpitation. No history of nausea or vomiting or diarrhea or fever or chills or cramps. OBJECTIVE: GENERAL: This is an obese female, in no apparent distress. VITAL SIGNS: Temperature 99.9, pulse 87, respiratory rate 18, blood pressure 140/67. HEENT: Atraumatic, normocephalic, Oral mucosa is moist. NECK: Supple. CARDIOVASCULAR: S1 and S2 heard. Rate and rhythm regular. RESPIRATORY: Clear to auscultation. GASTROINTESTINAL: Abdomen is soft. MUSCULOSKELETAL: No tenderness, no edema. DERMATOLOGIC: No skin rash. NEUROLOGIC: Alert and awake and oriented x3. No focal neurologic deficits. Moving all the extremities. PSYCHIATRIC: Mood and affect normal. LABORATORY DATA: Potassium is 3.5, BUN 19, creatinine is 2.9. ASSESSMENT AND PLAN: 1. End-stage renal disease. Continue dialysis Sunday, , and Sunday as tolerated. 2. Hyperkalemia, better. 3. Edema. continue dialysis. 4. Obesity. 5. Hypertension. 6. Anemia. Continue Epogen. The plan is to continue on dialysis as tolerated. MTDD
[2017-03-13] MEDS: Amitriptyline HCl 25 MG TAB PO SCH (19:50)
[2017-03-13] MEDS: Atorvastatin Calcium 20 MG TAB PO SCH (19:51)
[2017-03-13] MEDS: HYDROcodone/Acetaminophen 5/325 mg Tablet PO PRN (19:58)
[2017-03-14 05:55] LABS: #Eosinphils 0.1 thou/uL (0.0-0.7); #Lymphocytes 0.5 thou/uL (1.20-3.40); #Monocytes 0.4 thou/uL (0.11-0.59); #Neutrophils 4.4 thou/uL (1.40-6.50); %Basophils 0.1 % (0.0-1.0); %Eosinophils 1.1 % (0.0-10.0); %Lymphocytes 9.9 % (21.0-51.0); %Monocytes 7.2 % (0.0-10.0); %Neutrophils 81.7 % (42.0-75.0); Hemoglobin 8.6 g/dL (12.0-16.0); Mean Corpuscular HGB CONC 32.2 g/dL (32.0-36.0); Mean Corpuscular Hemoglobin 30.6 pg (27.0-31.0); Mean Corpuscular Volume 95.2 fl (81.0-99.0); Mean Platelet Volume 7.9 fL (7.4-10.4); Platelet Count 120 thou/uL (130-400); RBC Distribution Width 16.3 % (11.5-14.5); White Blood Cell (WBC) Count 5.4 thou/uL (4.8-10.8)
[2017-03-14 06:16] LABS: Anion Gap 12 mmol/L (10-20); BUN (Urea Nitrogen) 13 mg/dL (9.8-20.1); Calc. Creatinine Clearance 42 mL/min (70-130); Carbon Dioxide 29 mmol/L (23-31); Chloride 97 mmol/L (98-107); Estimated GFR-MDRD 22; Glucose 153 mg/dL (80-115); Potassium 3.8 mmol/L (3.5-5.1); Sodium 134 mmol/L (136-145)
[2017-03-14] MEDS: Carvedilol 6.25 MG TAB PO SCH ×2 (06:19→21:56)
[2017-03-14] MEDS: Sevelamer Carbonate 800 MG TAB PO SCH ×3 (08:08→18:14)
[2017-03-14] MEDS: hydrALAZINE 25 MG TAB PO SCH ×3 (08:08→21:54)
--- NOTE | 2017-03-14 11:33 | PRG ---
DATE OF SERVICE: 03/14/2017 SUBJECTIVE: Patient was seen and examined at bedside and overnight events noted. Patient denies any shortness of breath or chest pain or palpitation. No history of nausea or vomiting or diarrhea or f ever or chills or cramps. OBJECTIVE: GENERAL: This is a well-built female, in no apparent distress. VITAL SIGNS: Temperature 99.2, pulse 93, respirations 18, blood pressure 155/67. HEENT: Atraumatic, normocephalic. Oral mucosa is moist. NECK: Supple. CARDIOVASCULAR: S1, S2 heard. Rate and rhythm regular. RESPIRATORY: Clear to auscultation. GASTROINTESTINAL: Abdomen is soft. MUSCULOSKELETAL: No tenderness, no edema. DERMATOLOGIC: No skin rash. NEUROLOGIC: Alert and awake and oriented x3. No focal neurologic deficits. Moving all the extremit ies. PSYCHIATRIC: Mood and affect normal. LABORATORY DATA: Potassium is 3.8, BUN is 13, creatinine is 2.2. ASSESSMENT AND PLAN: 1. End-stage renal disease, continue on hemodialysis 2. Hypertension, stable. 3. Edema, controlled. 4. Anemia. Continue HEATHER with dialysis. 5. We will continue on dialysis Sunday, , Sunday.
--- NOTE | 2017-03-14 13:12 | PDOC.PN ---
- Subjective Encounter Start Date: 03/14/17 Encounter Start Time: 13:09 Subjective: No new complaints -: No acute events overnight. - Objective Resuscitation Status: Resuscitation Status FULL:Full Resuscitation MAR Reviewed: Yes Vital Signs & Weight: Vital Signs (12 hours) Temp Pulse Resp BP BP BP Pulse Ox 03/14/17 11:24 99.5 F 87 16 143/76 H 99 03/14/17 08:08 89 173/66 H 03/14/17 08:00 99.5 F 87 16 03/14/17 06:19 155/67 H 03/14/17 04:00 99.2 F 93 18 155/67 H 98 Weight Admit Weight 246 lb 14.4 oz Weight 224 lb 9.6 oz I&O: 03/13/17 03/14/17 03/15/17 06:59 06:59 06:59 Intake Total 400 705 Output Total 2000 0 Balance -1600 705 Result Diagrams: 03/14/17 05:36 03/14/17 05:36 Additional Labs: Accuchecks 03/14/17 03/14/17 03/13/17 11:51 04:43 18:14 POC Glucose 176 H 145 H 162 H Phys Exam - Physical Examination HEENT: PERRLA, moist MMs, sclera anicteric Neck: supple, full ROM Respiratory: no wheezing, no rales, no rhonchi, clear to auscultation bilateral Cardiovascular: RRR, no significant murmur, no rub Gastrointestinal: soft, non-tender, no distention, positive bowel sounds Musculoskeletal: no edema, pulses present Neurological: non-focal, moves all 4 limbs Psychiatric: normal affect Skin: no rash, normal turgor Dx/Plan (1) ESRD (end stage renal disease) on dialysis Code(s): N18.6 - END STAGE RENAL DISEASE; Z99.2 - DEPENDENCE ON RENAL DIALYSIS Status: Chronic Comment: On TTS schedule. Missed at least 2 sessions before this admission. Will continur TS schedule while on admission Renal on board. (2) History of DVT (deep vein thrombosis) Code(s): Z86.718 - PERSONAL HISTORY OF OTHER VENOUS THROMBOSIS AND EMBOLISM Status: Acute Comment: On AC maryam Arroyo. (3) Coronary artery disease Code(s): I25.10 - ATHSCL HEART DISEASE OF [place] CORONARY ARTERY W/O ANG PCTRS Status: Chronic Qualifiers: Coronary Disease-Associated Artery/Lesion type: unspecified vessel or lesion type [place] vs. transplanted heart: [place] heart Associated angina: without angina Qualified Code(s): I25.10 - Atherosclerotic heart disease of [place] coronary artery without angina pectoris Comment: Stable, chest pain free. Continue home regimen. (4) Hypertension Code(s): I10 - ESSENTIAL (PRIMARY) HYPERTENSION Status: Chronic Qualifiers: Hypertension type: essential hypertension Qualified Code(s): I10 - Essential (primary) hypertension Plan: Continue home medications. Comment: At goal. (5) Diabetes mellitus Code(s): E11.9 - TYPE 2 DIABETES MELLITUS WITHOUT COMPLICATIONS Status: Chronic Qualifiers: Diabetes mellitus complication status: with kidney complications Diabetes mellitus complication detail: with chronic kidney disease Chronic kidney disease stage: on chronic dialysis Plan: Fair control Continue current management. Comment: on SSI Long acting insulin discontinued 2/2 hypoglycemia. (6) Hypoglycemia Code(s): E16.2 - HYPOGLYCEMIA, UNSPECIFIED Status: Resolved Comment: Improving. Long acting insulin being held. Continue SSI (7) Physical deconditioning Code(s): R53.81 - OTHER MALAISE Status: Acute Comment: Likely 2/2 prolonged hospitalization. Will need BLANCA placement. (8) Sacral decubitus ulcer Status: Acute Qualifiers: Pressure ulcer stage: unstageable Qualified Code(s): L89.150 - Pressure ulcer of sacral region, unstageable Comment: Unstageable 2/2 necrotic tissue. Gen Surgery evaluated. Will be taken to OR for debridement. - Plan cont current plan of care, PT/OT, director of social services Awaiting BLANCA. WIll f/u with CM * .
[2017-03-14] MEDS ORDERED: Lidocaine 1% PF 5 ML VIAL ONE (15:15)
[2017-03-14] MEDS ORDERED: PHENYLEPHRINE-NS 100 MCG/ML 10 ML SYRINGE ONE (15:15)
[2017-03-14] MEDS ORDERED: Propofol 200 MG/20 ML VIAL ONE (15:15)
[2017-03-14] MEDS ORDERED: Glycopyrrolate 0.2 MG/ML 5 ML SYRINGE ONE (15:15)
[2017-03-14] MEDS ORDERED: Ondansetron HCl/PF 4 MG/2 ML Vial ONE (15:15)
[2017-03-14] MEDS ORDERED: Midazolam HCl 2 mg/2 ml Vial ONE (15:54)
[2017-03-14] MEDS ORDERED: Fentanyl 100 MCG/2 ML VIAL ONE (15:54)
[2017-03-14] MEDS ORDERED: HYDROmorphone 2 MG/ML VIAL SLOW IVP PRN (16:58)
[2017-03-14] MEDS ORDERED: Morphine Sulfate 2 MG/ML SYRINGE SLOW IVP PRN (16:58)
[2017-03-14] MEDS ORDERED: Promethazine HCl 25 MG/ML VIAL SLOW IVP PRN (16:58)
[2017-03-14] MEDS ORDERED: Piperacillin/Tazobactam 3.375 GM VIAL ONE (17:05)
[2017-03-14] MEDS ORDERED: Acetaminophen 500 MG TAB PO PRN (17:40)
[2017-03-14] MEDS: traMADol HCl 50 MG TAB PO PRN (18:19)
[2017-03-14 19:43] LABS: INR-International Normal Ratio 2.1
[2017-03-14] MEDS: Amitriptyline HCl 25 MG TAB PO SCH (21:55)
[2017-03-14] MEDS: Atorvastatin Calcium 20 MG TAB PO SCH (21:56)
[2017-03-14] MEDS: Acetaminophen 325 MG TAB PO PRN (21:56)
[2017-03-15 05:12] LABS: #Lymphocytes 0.6 thou/uL (1.20-3.40); #Monocytes 0.4 thou/uL (0.11-0.59); #Neutrophils 3.4 thou/uL (1.40-6.50); %Basophils 0.4 % (0.0-1.0); %Eosinophils 0.9 % (0.0-10.0); %Lymphocytes 13.7 % (21.0-51.0); %Monocytes 8.5 % (0.0-10.0); %Neutrophils 76.5 % (42.0-75.0); Hemoglobin 7.5 g/dL (12.0-16.0); Mean Corpuscular HGB CONC 32.2 g/dL (32.0-36.0); Mean Corpuscular Hemoglobin 31.1 pg (27.0-31.0); Mean Corpuscular Volume 96.8 fl (81.0-99.0); Mean Platelet Volume 7.8 fL (7.4-10.4); Platelet Count 123 thou/uL (130-400); RBC Distribution Width 16.3 % (11.5-14.5); Red Blood Cell (RBC) Count 2.41 mill/uL (4.20-5.40); White Blood Cell (WBC) Count 4.4 thou/uL (4.8-10.8)
[2017-03-15 05:20] LABS: INR-International Normal Ratio 2.1; Prothrombin Time 24.2 SEC (12.0-14.7)
[2017-03-15 05:25] LABS: Anion Gap 11 mmol/L (10-20); BUN (Urea Nitrogen) 23 mg/dL (9.8-20.1); Calc. Creatinine Clearance 31 mL/min (70-130); Calcium 7.7 mg/dL (7.8-10.44); Carbon Dioxide 29 mmol/L (23-31); Chloride 96 mmol/L (98-107); Estimated GFR-MDRD 16; Glucose 224 mg/dL (80-115); Potassium 3.5 mmol/L (3.5-5.1); Sodium 132 mmol/L (136-145)
--- NOTE | 2017-03-15 06:18 | OP ---
DATE OF PROCEDURE: 03/14/2017 PREOPERATIVE DIAGNOSES: End-stage renal disease, status post radiation and chemotherapy for vaginal bleeding for endometrial cancer, status post hysterectomy, foul smelling necrotic sacral decubitus 10 x 7 cm. POSTOPERATIVE DIAGNOSES: End-stage renal disease, status post radiation and chemotherapy for vaginal bleeding for endometrial cancer, status post hysterectomy, foul smelling necrotic sacral decubitus 1 0 x 7 cm. PROCEDURES: Debridement of skin and subcutaneous tissue to the deep sacrum, mostly right buttocks. Wound left open to heal by secondary intention. Surgicel and Isabel placed for hemostasis. Wound VA C to be applied tomorrow. SURGEON: Delvis Monterroso MD ANESTHESIA: General. DESCRIPTION OF PROCEDURE: The patient was taken to the operating room, where under general anesthesi a under right lateral decubitus position, buttocks and presacral area prepared with ChloraPrep, drape d in routine fashion. Necrotic skin and subcutaneous tissue debrided sharply, 10-blade scalpel down to the fascia and muscle. Hemostasis gained with the cautery. Wound irrigated. Good hemostas is noted and healthy tissue remained. Isabel and Surgicel applied. Sterile dressing applied. The p atient tolerated the procedure well.
[2017-03-15] MEDS: Acetaminophen 325 MG TAB PO PRN (07:45)
[2017-03-15] MEDS: Sevelamer Carbonate 800 MG TAB PO SCH ×3 (08:00→16:33)
[2017-03-15] MEDS: Carvedilol 6.25 MG TAB PO SCH ×2 (08:00→21:58)
[2017-03-15] MEDS: hydrALAZINE 25 MG TAB PO SCH ×3 (08:00→21:57)
[2017-03-15] MEDS ORDERED: Albumin 25% 25 GM/100 ML BOT IVPB ONE (10:15)
--- NOTE | 2017-03-15 13:22 | PDOC.PN ---
- Subjective Encounter Start Date: 03/15/17 Encounter Start Time: 09:00 Subjective: No c/o -: No acute events overnight. - Objective Resuscitation Status: Resuscitation Status FULL:Full Resuscitation MAR Reviewed: Yes Vital Signs & Weight: Vital Signs (12 hours) Temp Pulse Resp BP BP BP Pulse Ox 03/15/17 08:00 98 F 78 16 107/48 L 100 03/15/17 07:32 98 F 78 16 107/48 L 100 03/15/17 04:00 98.1 F 65 16 110/56 L 98 Weight Admit Weight 246 lb 14.4 oz Weight 224 lb 13.944 oz I&O: 03/14/17 03/15/17 03/16/17 06:59 06:59 06:59 Intake Total 705 900 Output Total 0 0 Balance 705 900 Result Diagrams: 03/16/17 04:10 03/16/17 04:10 Additional Labs: Accuchecks 03/15/17 03/14/17 03/14/17 05:50 20:52 18:24 POC Glucose 217 H 186 H 164 H Phys Exam - Physical Examination Constitutional: NAD HEENT: PERRLA, moist MMs, sclera anicteric Neck: supple, full ROM Respiratory: no wheezing, no rales, no rhonchi, clear to auscultation bilateral Cardiovascular: RRR, no significant murmur, no rub Gastrointestinal: soft, non-tender, no distention, positive bowel sounds Musculoskeletal: pulses present, edema present (L arm) Neurological: non-focal, moves all 4 limbs Psychiatric: normal affect, A&O x 3 Skin: no rash, normal turgor Dx/Plan (1) ESRD (end stage renal disease) on dialysis Code(s): N18.6 - END STAGE RENAL DISEASE; Z99.2 - DEPENDENCE ON RENAL DIALYSIS Status: Chronic Comment: On TTS schedule. Missed at least 2 sessions before this admission. Will continue TS schedule while on admission Renal on board. (2) History of DVT (deep vein thrombosis) Code(s): Z86.718 - PERSONAL HISTORY OF OTHER VENOUS THROMBOSIS AND EMBOLISM Status: Acute Comment: On AC maryam Arroyo. (3) Coronary artery disease Code(s): I25.10 - ATHSCL HEART DISEASE OF [place] CORONARY ARTERY W/O ANG PCTRS Status: Chronic Qualifiers: Coronary Disease-Associated Artery/Lesion type: unspecified vessel or lesion type [place] vs. transplanted heart: [place] heart Associated angina: without angina Qualified Code(s): I25.10 - Atherosclerotic heart disease of [place] coronary artery without angina pectoris Comment: Stable, chest pain free. Continue home regimen. (4) Hypertension Code(s): I10 - ESSENTIAL (PRIMARY) HYPERTENSION Status: Chronic Qualifiers: Hypertension type: essential hypertension Qualified Code(s): I10 - Essential (primary) hypertension Comment: At goal. (5) Diabetes mellitus Code(s): E11.9 - TYPE 2 DIABETES MELLITUS WITHOUT COMPLICATIONS Status: Chronic Qualifiers: Diabetes mellitus complication status: with kidney complications Diabetes mellitus complication detail: with chronic kidney disease Chronic kidney disease stage: on chronic dialysis Comment: on SSI Long acting insulin discontinued 2/2 hypoglycemia. (6) Hypoglycemia Code(s): E16.2 - HYPOGLYCEMIA, UNSPECIFIED Status: Resolved Comment: Improving. Long acting insulin being held. Continue SSI (7) Physical deconditioning Code(s): R53.81 - OTHER MALAISE Status: Acute Comment: Likely 2/2 prolonged hospitalization. Will need BLANCA placement. (8) Sacral decubitus ulcer Status: Acute Qualifiers: Pressure ulcer stage: unstageable Qualified Code(s): L89.150 - Pressure ulcer of sacral region, unstageable Comment: s/p debridement. Cx grew E. Coli, meléndez sensitive. Started on Omnicef. - Plan * .
[2017-03-15] MEDS: Insulin Detemir 100 UNITS/ML 35 UNITS in Pre-Filled Syringe 1 EACH SC SCH (13:32)
--- NOTE | 2017-03-15 14:57 | PRG ---
DATE OF SERVICE: 03/15/2017 SUBJECTIVE: Patient was seen and examined at bedside and overnight events noted. Patient denies any shortness of breath or chest pain or palpitation. No history of nausea or vomiting or diarrhea or f ever or chills or cramps. OBJECTIVE: GENERAL: This is an obese female in no apparent distress. VITAL SIGNS: Temperature 97.7, pulse 87, respiratory rate 16, blood pressure 127/71. HEENT: Atraumatic, normocephalic. Oral mucosa is moist. NECK: Supple. CARDIOVASCULAR: S1, S2 heard. Rate and rhythm regular. RESPIRATORY: Clear to auscultation. GASTROINTESTINAL: Abdomen is soft. MUSCULOSKELETAL: No tenderness. No edema. DERMATOLOGIC: No skin rash. NEUROLOGIC: Alert and awake and oriented x3. No focal neurologic deficits. Moving all the extremiti es. PSYCHIATRIC: Mood and affect normal. LABORATORY DATA: Potassium 3.5, BUN is 23, creatinine 3.03. ASSESSMENT AND PLAN: 1. End-stage renal disease. Continue on hemodialysis as tolerated. 2. Anemia. 3. Edema, remove fluid. 4. Hypertension, stable. Plan is to continue on dialysis as tolerated.
--- NOTE | 2017-03-15 16:30 | PRG ---
DATE OF SERVICE: 03/15/2017 Yessenia Allen is doing well today. Wound care will place a wound VAC on her wound. The patient c an be discharged from a surgical standpoint at any time. Probably oral antibiotics for 4-5 days is a ll that is necessary. She can follow up in my office in 3-4 weeks. At this point, I will see her as needed. Please call if necessary.
[2017-03-15] MEDS: traMADol HCl 50 MG TAB PO PRN (16:32)
[2017-03-15] MEDS: Epoetin (ESRD) 20,000 UNITS/ML IVP SCH (16:33)
[2017-03-15] MEDS: HumaLOG 300 UNITS/3 ML VIAL SC PRN (18:33)
[2017-03-15] MEDS: Amitriptyline HCl 25 MG TAB PO SCH (21:58)
[2017-03-15] MEDS: Atorvastatin Calcium 20 MG TAB PO SCH (21:58)
[2017-03-16 04:41] LABS: INR-International Normal Ratio 1.6; Prothrombin Time 19.3 SEC (12.0-14.7)
[2017-03-16 04:44] LABS: #Eosinphils 0.1 thou/uL (0.0-0.7); #Lymphocytes 0.6 thou/uL (1.20-3.40); #Monocytes 0.4 thou/uL (0.11-0.59); #Neutrophils 2.8 thou/uL (1.40-6.50); %Eosinophils 2.9 % (0.0-10.0); %Monocytes 10.2 % (0.0-10.0); %Neutrophils 71.9 % (42.0-75.0); Hemoglobin 7.3 g/dL (12.0-16.0); Mean Corpuscular HGB CONC 32.4 g/dL (32.0-36.0); Mean Corpuscular Hemoglobin 31.6 pg (27.0-31.0); Mean Corpuscular Volume 97.2 fl (81.0-99.0); Mean Platelet Volume 7.6 fL (7.4-10.4); Platelet Count 145 thou/uL (130-400); RBC Distribution Width 16.4 % (11.5-14.5); White Blood Cell (WBC) Count 3.9 thou/uL (4.8-10.8)
[2017-03-16 04:47] LABS: Anion Gap 11 mmol/L (10-20); BUN (Urea Nitrogen) 23 mg/dL (9.8-20.1); Calc. Creatinine Clearance 31 mL/min (70-130); Calcium 8.4 mg/dL (7.8-10.44); Carbon Dioxide 29 mmol/L (23-31); Chloride 96 mmol/L (98-107); Estimated GFR-MDRD 16; Glucose 63 mg/dL (80-115); Potassium 3.8 mmol/L (3.5-5.1); Sodium 132 mmol/L (136-145)
[2017-03-16 05:26] VITALS: BMI 43.8
[2017-03-16] MEDS: Sevelamer Carbonate 800 MG TAB PO SCH ×3 (07:13→16:57)
[2017-03-16] MEDS: HYDROcodone/Acetaminophen 5/325 mg Tablet PO PRN (07:13)
[2017-03-16] MEDS: hydrALAZINE 25 MG TAB PO SCH ×3 (07:16→19:40)
[2017-03-16] MEDS: Carvedilol 6.25 MG TAB PO SCH ×2 (07:16→19:39)
[2017-03-16] MEDS: Insulin Detemir 100 UNITS/ML 35 UNITS in Pre-Filled Syringe 1 EACH SC SCH (08:44)
[2017-03-16] MEDS: Cefdinir 300 MG CAP PO SCH ×2 (08:45→19:39)
[2017-03-16] MEDS: traMADol HCl 50 MG TAB PO PRN (08:48)
--- NOTE | 2017-03-16 12:46 | PDOC.PN ---
- Subjective Encounter Start Date: 03/16/17 Encounter Start Time: 12:48 Subjective: c/o sacral decub pain -: No acute overnight events. - Objective Resuscitation Status: Resuscitation Status FULL:Full Resuscitation MAR Reviewed: Yes Vital Signs & Weight: Vital Signs (12 hours) Temp Pulse Resp BP BP Pulse Ox 03/16/17 07:57 98.4 F 89 18 131/60 92 L 03/16/17 07:23 98.6 F 85 18 03/16/17 07:16 85 145/73 H 03/16/17 07:03 98.6 F 85 20 150/71 H 98 03/16/17 04:00 98.5 F 85 18 145/73 H 98 Weight Admit Weight 246 lb 14.4 oz Weight 223 lb 1.725 oz I&O: 03/15/17 03/16/17 03/17/17 06:59 06:59 06:59 Intake Total 900 892 Output Total 0 Balance 900 892 Result Diagrams: 03/16/17 04:10 03/16/17 04:10 Additional Labs: Accuchecks 03/16/17 03/16/17 03/16/17 11:08 08:45 05:07 POC Glucose 104 94 75 03/15/17 03/15/17 03/15/17 20:11 18:27 13:11 POC Glucose 154 H 224 H 179 H Phys Exam - Physical Examination Constitutional: NAD HEENT: PERRLA, moist MMs, sclera anicteric Neck: supple, full ROM Respiratory: no wheezing, no rales, no rhonchi, clear to auscultation bilateral Cardiovascular: RRR, no significant murmur, no rub Gastrointestinal: soft, non-tender, no distention, positive bowel sounds Musculoskeletal: pulses present, edema present (worse, left ectremities) Neurological: non-focal, moves all 4 limbs Psychiatric: normal affect, A&O x 3 Skin: no rash, normal turgor Dx/Plan (1) Anemia due to end stage renal disease Code(s): N18.6 - END STAGE RENAL DISEASE; D63.1 - ANEMIA IN CHRONIC KIDNEY DISEASE Status: Chronic Comment: Hb steadily trending down Will get anemia w/u including occult blood to r/o bleeding Type and screen. Likely transfuse during HD tomorrow (2) ESRD (end stage renal disease) on dialysis Code(s): N18.6 - END STAGE RENAL DISEASE; Z99.2 - DEPENDENCE ON RENAL DIALYSIS Status: Chronic Comment: On TTS schedule. Missed at least 2 sessions before this admission. Will continue TS schedule while on admission Renal on board. (3) History of DVT (deep vein thrombosis) Code(s): Z86.718 - PERSONAL HISTORY OF OTHER VENOUS THROMBOSIS AND EMBOLISM Status: Acute Comment: On AC w Cruz. (4) Coronary artery disease Code(s): I25.10 - ATHSCL HEART DISEASE OF [place] CORONARY ARTERY W/O ANG PCTRS Status: Chronic Qualifiers: Coronary Disease-Associated Artery/Lesion type: unspecified vessel or lesion type [place] vs. transplanted heart: [place] heart Associated angina: without angina Qualified Code(s): I25.10 - Atherosclerotic heart disease of [place] coronary artery without angina pectoris Comment: Stable, chest pain free. Continue home regimen. (5) Hypertension Code(s): I10 - ESSENTIAL (PRIMARY) HYPERTENSION Status: Chronic Qualifiers: Hypertension type: essential hypertension Qualified Code(s): I10 - Essential (primary) hypertension Comment: At goal. (6) Diabetes mellitus Code(s): E11.9 - TYPE 2 DIABETES MELLITUS WITHOUT COMPLICATIONS Status: Chronic Qualifiers: Diabetes mellitus complication status: with kidney complications Diabetes mellitus complication detail: with chronic kidney disease Chronic kidney disease stage: on chronic dialysis Plan: Continue current management. Comment: on SSI Long acting insulin discontinued 2/2 hypoglycemia. (7) Physical deconditioning Code(s): R53.81 - OTHER MALAISE Status: Acute Comment: Likely 2/2 prolonged hospitalization. Will need BLANCA placement. (8) Sacral decubitus ulcer Status: Acute Qualifiers: Pressure ulcer stage: unstageable Qualified Code(s): L89.150 - Pressure ulcer of sacral region, unstageable Comment: s/p debridement. Cx grew E. Coli, meléndez sensitive. Started on Omnicef. - Plan cont current plan of care, continue antibiotics, PT/OT, manager social * .
--- NOTE | 2017-03-16 12:59 | PRG ---
DATE OF SERVICE: 03/16/2017 SUBJECTIVE: Patient was seen and examined at bedside and overnight events noted. Patient denies any shortness of breath or chest pain or palpitation. No history of nausea or vomiting or diarrhea or f ever or chills or cramps. OBJECTIVE: GENERAL: This is an obese female, in no apparent distress. VITAL SIGNS: Temperature 98.4, pulse 89, respiratory rate 18, blood pressure 131/60. HEENT: Atraumatic, normocephalic. Oral mucosa is moist. NECK: Supple. CARDIOVASCULAR: S1, S2 heard, rate and rhythm regular RESPIRATORY: Clear to auscultation. GASTROINTESTINAL: Abdomen is soft. MUSCULOSKELETAL: 3+ edema in the left upper and lower extremity, 1+ edema in the right side. DERMATOLOGIC: No skin rash. NEUROLOGIC: Alert and awake and oriented x3, no focal neurologic deficits. Moving all the extremiti es. PSYCHIATRIC: Mood and affect normal LABORATORY DATA: Hemoglobin is 7.3, potassium is 3.8, BUN 23, creatinine 3.02. ASSESSMENT AND PLAN: 1. End-stage renal disease. We will continue on dialysis . 2. Edema and dialysis access. Consult Dr. Monterroso and plan is to have fistulogram. 3. Edema. Remove fluid with dialysis. 4. Hypertension, stable. 5. Overall, prognosis is poor. We will evaluation. Case discussed with Dr. Monterroso.
[2017-03-16] MEDS: Morphine 2 MG/ML SYRINGE SLOW IVP PRN ×2 (13:14→14:18)
--- NOTE | 2017-03-16 14:13 | PRG ---
DATE OF SERVICE: 03/16/2017 Yessenia Allen is seen today at the request of Dr. Stevens. The patient has a left upper arm basil ic vein transposition fistula that I placed in 2013. It is reported that her left arm is edematous. As I questioned the patient, she has been sent from [facility] to [facility] for surveillance after stent was placed in some location. The patient has an appointment to be seen today at the [facility] for surveillance. This is most likely the origin of he r problem. The patient has a stent. On looking at her chest x-ray the stent is present at these ce phalic vein, subclavian vein junction, that this will be a chronic problem. On the peripheral edge o f the chest x-ray I see that she has a stent in her mid basilic vein transposition fistula towards th e proximal humerus. On exam she has collateral veins over her left chest, not present on her right. ASSESSMENT AND PLAN: Basilic vein transposition fistula left upper arm in a morbidly obese patient w ith a stent at the subclavian vein left, and another stent at the mid basilic vein transposition fist willian, proximal mid humerus area. In this transposition fistula unfortunately this revision probably c annot be done and surgical intervention is not an option and interventional followup will be necessar y. Would recommend preserving her right arm for future dialysis access as her left arm fistula will eventually fail. As I review her imaging from the past in 02/2015 she had a fistulogram at this facility and it was no mariah at that time that she has a stent in her basilic vein transposition fistula in her proximal humer us that probably had been placed at an outside facility. She also had a stenosis in her left subclav yani vein at that time and a EMERGENCY DEPARTMENT MANAGER was performed. She had numerous collaterals probably after that inte rvention at this facility she probably had another intervention at [facility] and placed a stent in her left subclavian. Overall, she has a failing left arm fistula and will need a surveillance interventi ons to keep it open. We will obtain a repeat ultrasound of her right arm veins for consideration of a right arm fistula in the future. It was noted that in 2013 ultrasound of her right arm revealed t he cephalic vein to be 2.1, 2.3, 1.7 mm and 2.0 mm antecubital fossa basilic vein, 4 mm, 3 mm, 3.7 mm , 4 mm antecubital fossa. We will recheck this right arm this hospitalization. She will need a new fistula in the right arm in the future.
--- NOTE | 2017-03-16 16:47 | SPC ---
PROCEDURES: 1. Left upper extremity arteriovenous dialysis fistulogram with venogram to the SVC. 2. CONTINUOUS MINER focal severe instant stenosis left subclavian vein. 03/16/17 HISTORY: Patient with left upper extremity arm and forearm swelling which started this morning. Patient has en d stage renal disease and left upper extremity arteriovenous dialysis fistula. Fistulogram and venogr am were requested. FLUOROSCOPY: Total fluoroscopy time is 3.7 minutes with total dose of 37,778 mGy*cm2. TECHNIQUE: After informed consent was obtained, patient was placed on the angiography table in the supine positi on. The left upper extremity was meticulously prepped and draped in the usual sterile fashion. Skin a nd subcutaneous tissues were infiltrated with buffered 1% lidocaine for local anesthesia at the inten ded puncture site. The left upper extremity arteriovenous dialysis fistula was accessed, directed in the venous direction and a 5 [place] introducer sheath was placed. A fistulogram and venogram of the S VC were performed. Manual compression was applied to the venous outflow, and contrast was faintly ref luxed through the arteriovenous anastomosis. The introducer sheath was exchanged over a 0.035 inch Amplatz guidewire for a 6 [place] vascular sheat h. An 8 mm x 4 cm angioplasty balloon was placed over the guide wire and positioned across the focal area of severe narrowing in the left subclavian stent. Angioplasty was performed. Although the lumina l narrowing was improved, persistent moderate area of narrowing persisted. As the result, the 8 mm di ameter Angioplasty balloon was exchanged over the guidewire for a 10 mm x 4 cm angioplasty balloon. P TA was performed in this region. Followup venogram demonstrates improved luminal diameter and brisk f low throughout the fistula. As the result, the procedure was terminated. The guide wire and 6 [place] vascular sheath were removed. Hemostasis was achieved with direct pressure. A dry sterile dressing wa s placed. The patient tolerated the procedure well without immediate complication. FINDINGS: Left upper extremity arteriovenous dialysis fistula with two separate stents within the venous outflo w, one of which is located within the left subclavian vein and demonstrates severe in-stent stenosis. CONTINUOUS MINER of this focal area of narrowing was obtained up to 10 mm in diameter with improvement in luminal diameter and brisk flow postprocedure. Patient also noted decrease in pressure sensation and relief from left upper extremity discomfort after angioplasty. Remainder of the venous outflow is patent to the SVC. Arteriovenous anastomosis is also patent. IMPRESSION: Focal severe in-stent stenosis left subclavian vein. CONTINUOUS MINER was performed up to 10 mm in diameter with i mprovement in luminal diameter and brisk flow throughout the fistula postprocedure. POS: ARTUR
[2017-03-16] MEDS: Atorvastatin Calcium 20 MG TAB PO SCH (19:39)
[2017-03-16] MEDS: Amitriptyline HCl 25 MG TAB PO SCH (19:42)
[2017-03-16] MEDS: HumaLOG 300 UNITS/3 ML VIAL SC PRN (19:44)
[2017-03-17] MEDS: HYDROcodone/Acetaminophen 5/325 mg Tablet PO PRN ×2 (06:09→20:34)
[2017-03-17 07:09] LABS: #Eosinphils 0.1 thou/uL (0.0-0.7); #Lymphocytes 0.8 thou/uL (1.20-3.40); #Monocytes 0.4 thou/uL (0.11-0.59); #Neutrophils 3.5 thou/uL (1.40-6.50); %Basophils 0.6 % (0.0-1.0); %Eosinophils 2.3 % (0.0-10.0); %Lymphocytes 15.8 % (21.0-51.0); %Monocytes 8.3 % (0.0-10.0); Hemoglobin 7.5 g/dL (12.0-16.0); Mean Corpuscular HGB CONC 32.8 g/dL (32.0-36.0); Mean Corpuscular Hemoglobin 31.7 pg (27.0-31.0); Mean Corpuscular Volume 96.7 fl (81.0-99.0); Mean Platelet Volume 7.3 fL (7.4-10.4); Platelet Count 169 thou/uL (130-400); RBC Distribution Width 16.3 % (11.5-14.5); Red Blood Cell (RBC) Count 2.36 mill/uL (4.20-5.40); White Blood Cell (WBC) Count 4.8 thou/uL (4.8-10.8)
[2017-03-17 07:17] LABS: INR-International Normal Ratio 1.4; Prothrombin Time 17.2 SEC (12.0-14.7)
[2017-03-17 07:27] LABS: Anion Gap 11 mmol/L (10-20); BUN (Urea Nitrogen) 30 mg/dL (9.8-20.1); Calc. Creatinine Clearance 24 mL/min (70-130); Calcium 8.1 mg/dL (7.8-10.44); Carbon Dioxide 30 mmol/L (23-31); Chloride 94 mmol/L (98-107); Estimated GFR-MDRD 12; Glucose 103 mg/dL (80-115); Iron 41 ug/dL (50-170); Potassium 4.1 mmol/L (3.5-5.1); Sodium 131 mmol/L (136-145)
[2017-03-17 07:58] LABS: Folate (Folic Acid) 3.9 ng/mL (7.0-31.4); Iron Binding Capacity, Total 61 mcg/dL (265-497)
[2017-03-17] MEDS: Sevelamer Carbonate 800 MG TAB PO SCH ×3 (08:21→16:47)
[2017-03-17] MEDS: Albumin 25% 25 GM/100 ML BOT IVPB SCH ×2 (09:50→10:00)
[2017-03-17] MEDS: Insulin Detemir 100 UNITS/ML 35 UNITS in Pre-Filled Syringe 1 EACH SC SCH (12:00)
[2017-03-17] MEDS: Morphine 2 MG/ML SYRINGE SLOW IVP PRN (12:11)
[2017-03-17] MEDS: Cefdinir 300 MG CAP PO SCH ×2 (12:11→20:33)
[2017-03-17] MEDS: Carvedilol 6.25 MG TAB PO SCH ×2 (12:12→20:34)
[2017-03-17] MEDS: hydrALAZINE 25 MG TAB PO SCH ×3 (12:12→20:33)
--- NOTE | 2017-03-17 12:56 | PDOC.PN ---
- Subjective Encounter Start Date: 03/17/17 Encounter Start Time: 12:54 Subjective: No new complaints. -: No acute events overnight. - Objective Resuscitation Status: Resuscitation Status FULL:Full Resuscitation MAR Reviewed: Yes Vital Signs & Weight: Vital Signs (12 hours) Temp Pulse Resp BP BP Pulse Ox 03/17/17 12:19 98.6 F 85 18 03/17/17 12:12 85 166/81 H 03/17/17 12:00 96.5 F L 79 18 124/74 100 03/17/17 05:19 98.3 F 85 16 137/77 98 Weight Admit Weight 246 lb 14.4 oz Weight 223 lb 1.725 oz I&O: 03/16/17 03/17/17 03/18/17 06:59 06:59 06:59 Intake Total 892 240 Output Total 0 Balance 892 240 Result Diagrams: 03/18/17 06:14 03/18/17 06:14 Additional Labs: Accuchecks 03/17/17 03/17/17 03/16/17 12:01 05:53 19:36 POC Glucose 104 98 261 H 03/16/17 16:40 POC Glucose 105 Phys Exam - Physical Examination Constitutional: NAD HEENT: moist MMs Neck: supple, full ROM Respiratory: no wheezing, no rales, no rhonchi Cardiovascular: RRR, no significant murmur, no rub Gastrointestinal: soft, non-tender, no distention, positive bowel sounds Musculoskeletal: pulses present, edema present (L upper extremity) Neurological: non-focal, moves all 4 limbs Psychiatric: normal affect, A&O x 3 Skin: no rash, normal turgor Dx/Plan (1) ESRD (end stage renal disease) on dialysis Code(s): N18.6 - END STAGE RENAL DISEASE; Z99.2 - DEPENDENCE ON RENAL DIALYSIS Status: Chronic Comment: On TTS schedule. Missed at least 2 sessions before this admission. Will continue TS schedule while on admission Renal on board. (2) Stenosis of left subclavian vein Code(s): I87.1 - COMPRESSION OF VEIN Status: Acute Comment: Seen on AV shunt angiogram- pt had L arm edema. Will need new access in the future. (3) History of DVT (deep vein thrombosis) Code(s): Z86.718 - PERSONAL HISTORY OF OTHER VENOUS THROMBOSIS AND EMBOLISM Status: Acute Comment: On AC w Elisara. (4) Coronary artery disease Code(s): I25.10 - ATHSCL HEART DISEASE OF [place] CORONARY ARTERY W/O ANG PCTRS Status: Chronic Qualifiers: Coronary Disease-Associated Artery/Lesion type: unspecified vessel or lesion type [place] vs. transplanted heart: [place] heart Associated angina: without angina Qualified Code(s): I25.10 - Atherosclerotic heart disease of [place] coronary artery without angina pectoris Comment: Stable, chest pain free. Continue home regimen. (5) Hypertension Code(s): I10 - ESSENTIAL (PRIMARY) HYPERTENSION Status: Chronic Qualifiers: Hypertension type: essential hypertension Qualified Code(s): I10 - Essential (primary) hypertension Comment: At goal. (6) Diabetes mellitus Code(s): E11.9 - TYPE 2 DIABETES MELLITUS WITHOUT COMPLICATIONS Status: Chronic Qualifiers: Diabetes mellitus complication status: with kidney complications Diabetes mellitus complication detail: with chronic kidney disease Chronic kidney disease stage: on chronic dialysis Comment: on SSI Long acting insulin discontinued 2/2 hypoglycemia. (7) Hypoglycemia Code(s): E16.2 - HYPOGLYCEMIA, UNSPECIFIED Status: Resolved Comment: Improving. Long acting insulin being held. Continue SSI (8) Physical deconditioning Code(s): R53.81 - OTHER MALAISE Status: Acute Comment: Likely 2/2 prolonged hospitalization. Will need BLANCA placement. (9) Sacral decubitus ulcer Status: Acute Qualifiers: Pressure ulcer stage: unstageable Qualified Code(s): L89.150 - Pressure ulcer of sacral region, unstageable Plan: Continue Omnicef Comment: s/p debridement. Cx grew E. Coli, meléndez sensitive. Started on Omnicef. - Plan cont current plan of care, continue antibiotics, PT/OT, social worker masters * .
[2017-03-17] MEDS: Ferrous Sulfate 325 MG TAB PO SCH (16:47)
[2017-03-17] MEDS: Epoetin (ESRD) 20,000 UNITS/ML IVP SCH (16:47)
--- NOTE | 2017-03-17 20:20 | PRG ---
DATE OF SERVICE: 03/17/2017 SUBJECTIVE: Patient was seen and examined at bedside and overnight events noted. Patient denies any shortness of breath or chest pain or palpitation. No history of nausea or vomiting or diarrhea or fever or chill s or cramps. OBJECTIVE: GENERAL: This is an obese female in no apparent distress. VITAL SIGNS: Temperature 96, pulse 85, respiratory rate 18, blood pressure 124/74. HEENT: Atraumatic, normocephalic. Oral mucosa is moist. Neck: Supple. Cardiovascular: S1 and S2 heard. Rate and rhythm regular. Respiratory: Clear to auscultation. Gastrointestinal: Abdomen is soft. Musculoskeletal: No tenderness. No edema. Dermatologic: No skin rash. Neurologic: Alert and awake and oriented x3. No focal neurologic deficits. Moving all the extremit ies. Psychiatric: Mood and affect normal. LABORATORY DATA: Potassium is 4.1, BUN is 30, creatinine 3.9, hemoglobin is 7.5. ASSESSMENT AND PLAN: 1. End-stage renal disease, currently on hemodialysis, tolerated. We will continue on dialysis as t olerated. 2. Anemia, mild. We will transfuse if less than 7. 3. Edema. 4. Dialysis access. I appreciate help from Surgery. 5. Hypertension. Blood pressure is stable. 6. Overall, renal function seems to be stable. We will follow.
[2017-03-17] MEDS: Atorvastatin Calcium 20 MG TAB PO SCH (20:33)
[2017-03-17] MEDS: Amitriptyline HCl 25 MG TAB PO SCH (20:34)
[2017-03-17] MEDS: traMADol HCl 50 MG TAB PO PRN (20:35)
[2017-03-18 06:31] LABS: INR-International Normal Ratio 1.3; Prothrombin Time 16.4 SEC (12.0-14.7)
[2017-03-18 06:33] LABS: #Lymphocytes 0.9 thou/uL (1.20-3.40); #Monocytes 0.3 thou/uL (0.11-0.59); #Neutrophils 4.5 thou/uL (1.40-6.50); %Basophils 0.2 % (0.0-1.0); %Eosinophils 0.5 % (0.0-10.0); %Lymphocytes 15.6 % (21.0-51.0); %Monocytes 5.5 % (0.0-10.0); %Neutrophils 78.1 % (42.0-75.0); Hemoglobin 7.9 g/dL (12.0-16.0); Mean Corpuscular Hemoglobin 32.3 pg (27.0-31.0); Mean Corpuscular Volume 97.9 fl (81.0-99.0); Mean Platelet Volume 7.6 fL (7.4-10.4); Platelet Count 188 thou/uL (130-400); RBC Distribution Width 16.6 % (11.5-14.5); Red Blood Cell (RBC) Count 2.45 mill/uL (4.20-5.40); White Blood Cell (WBC) Count 5.7 thou/uL (4.8-10.8)
[2017-03-18 06:34] LABS: Anion Gap 16 mmol/L (10-20); BUN (Urea Nitrogen) 20 mg/dL (9.8-20.1); Calc. Creatinine Clearance 33 mL/min (70-130); Calcium 8.7 mg/dL (7.8-10.44); Carbon Dioxide 26 mmol/L (23-31); Chloride 98 mmol/L (98-107); Estimated GFR-MDRD 17; Glucose 215 mg/dL (80-115); Potassium 4.8 mmol/L (3.5-5.1); Sodium 135 mmol/L (136-145)
[2017-03-18] MEDS: Carvedilol 6.25 MG TAB PO SCH ×2 (08:15→20:22)
[2017-03-18] MEDS: hydrALAZINE 25 MG TAB PO SCH ×3 (08:15→20:23)
[2017-03-18] MEDS: Ferrous Sulfate 325 MG TAB PO SCH ×2 (08:15→16:07)
[2017-03-18] MEDS: Folic Acid 1 MG TAB PO SCH (08:16)
[2017-03-18] MEDS: Cefdinir 300 MG CAP PO SCH ×2 (08:16→20:23)
[2017-03-18] MEDS: HYDROcodone/Acetaminophen 5/325 mg Tablet PO PRN ×2 (08:16→20:24)
[2017-03-18] MEDS: Sevelamer Carbonate 800 MG TAB PO SCH ×4 (08:16→17:06)
[2017-03-18] MEDS: Insulin Detemir 100 UNITS/ML 35 UNITS in Pre-Filled Syringe 1 EACH SC SCH (08:17)
--- NOTE | 2017-03-18 10:35 | PDOC.PN ---
- Subjective Encounter Start Date: 03/18/17 Encounter Start Time: 10:35 -: No acute events overnight -: No new complaints - Objective Resuscitation Status: Resuscitation Status FULL:Full Resuscitation MAR Reviewed: Yes Vital Signs & Weight: Vital Signs (12 hours) Temp Pulse Resp BP BP BP Pulse Ox 03/18/17 08:34 98.4 F 97 18 153/86 H 100 03/18/17 08:15 92 153/86 H 03/18/17 08:00 98.4 F 97 18 100 03/18/17 04:00 98.3 F 92 20 115/66 95 03/18/17 00:00 98.6 F 88 20 146/86 H 99 Weight Admit Weight 246 lb 14.4 oz Weight 223 lb 1.725 oz I&O: 03/17/17 03/18/17 03/19/17 06:59 06:59 06:59 Intake Total 240 850 Output Total 0 2700 Balance 240 -1850 Result Diagrams: 03/18/17 06:14 03/18/17 06:14 Additional Labs: Accuchecks 03/18/17 03/17/17 03/17/17 05:50 21:47 16:37 POC Glucose 272 H 177 H 154 H 03/17/17 12:01 POC Glucose 104 Phys Exam - Physical Examination Constitutional: NAD HEENT: PERRLA, moist MMs, sclera anicteric Neck: supple, full ROM Respiratory: no wheezing, no rales, no rhonchi, clear to auscultation bilateral Cardiovascular: RRR, no significant murmur, no rub Gastrointestinal: soft, non-tender, no distention, positive bowel sounds Musculoskeletal: edema present (L arm and leg) Neurological: non-focal, moves all 4 limbs Psychiatric: normal affect, A&O x 3 Skin: no rash, normal turgor Dx/Plan (1) ESRD (end stage renal disease) on dialysis Code(s): N18.6 - END STAGE RENAL DISEASE; Z99.2 - DEPENDENCE ON RENAL DIALYSIS Status: Chronic Comment: On TTS schedule. Missed at least 2 sessions before this admission. Will continue TS schedule while on admission Renal on board. (2) Stenosis of left subclavian vein Code(s): I87.1 - COMPRESSION OF VEIN Status: Acute Comment: Seen on AV shunt angiogram- pt had L arm edema. Will need new access in the future. (3) History of DVT (deep vein thrombosis) Code(s): Z86.718 - PERSONAL HISTORY OF OTHER VENOUS THROMBOSIS AND EMBOLISM Status: Acute Comment: On AC w Elisara. (4) Coronary artery disease Code(s): I25.10 - ATHSCL HEART DISEASE OF [place] CORONARY ARTERY W/O ANG PCTRS Status: Chronic Qualifiers: Coronary Disease-Associated Artery/Lesion type: unspecified vessel or lesion type [place] vs. transplanted heart: [place] heart Associated angina: without angina Qualified Code(s): I25.10 - Atherosclerotic heart disease of [place] coronary artery without angina pectoris Comment: Stable, chest pain free. Continue home regimen. (5) Hypertension Code(s): I10 - ESSENTIAL (PRIMARY) HYPERTENSION Status: Chronic Qualifiers: Hypertension type: essential hypertension Qualified Code(s): I10 - Essential (primary) hypertension Comment: At goal. (6) Diabetes mellitus Code(s): E11.9 - TYPE 2 DIABETES MELLITUS WITHOUT COMPLICATIONS Status: Chronic Qualifiers: Diabetes mellitus complication status: with kidney complications Diabetes mellitus complication detail: with chronic kidney disease Chronic kidney disease stage: on chronic dialysis Comment: on SSI Long acting insulin discontinued 2/2 hypoglycemia. (7) Hypoglycemia Code(s): E16.2 - HYPOGLYCEMIA, UNSPECIFIED Status: Resolved Comment: Improving. Long acting insulin being held. Continue SSI (8) Physical deconditioning Code(s): R53.81 - OTHER MALAISE Status: Acute Comment: Likely 2/2 prolonged hospitalization. Will need BLANCA placement. (9) Sacral decubitus ulcer Status: Acute Comment: s/p debridement. Cx grew E. Coli, meléndez sensitive. Started on Omnicef. - Plan cont current plan of care, continue antibiotics, DVT proph w/heparin Discontinue Oxygen supplementation -: Awaiting placement. * .
[2017-03-18] MEDS: HumaLOG 300 UNITS/3 ML VIAL SC PRN ×3 (14:24→23:06)
--- NOTE | 2017-03-18 17:05 | PRG ---
DATE OF SERVICE: 03/18/2017 SUBJECTIVE: Patient was seen and examined at bedside and overnight events noted. Patient denies any shortness of breath or chest pain or palpitation. No history of nausea or vomiting or diarrhea or fever or chill s or cramps. OBJECTIVE: GENERAL: This is an obese female in no acute distress VITAL SIGNS: Temperature 97.8, pulse rate 80, respiratory rate 18, blood pressure 154/87. HEENT: Atraumatic, normocephalic. Oral mucosa is moist NECK: Supple CARDIOVASCULAR: S1, S2 heard. Rate and rhythm regular RESPIRATORY: Clear to auscultation. GASTROINTESTINAL: Abdomen is soft. MUSCULOSKELETAL: No tenderness. No edema. DERMATOLOGIC: No skin rash. NEUROLOGIC: Alert and awake and oriented X3. No focal neurologic deficits. Moving all the extremit ies. PSYCHIATRIC: Mood and affect normal LABORATORY DATA: Potassium is 4.8, BUN is 20, creatinine is 2.7. ASSESSMENT AND PLAN: 1. End-stage renal disease. We will continue on dialysis. 2. Hypertension, stable. 3. Edema, controlled. 4. much better. 5. Obesity. 6. Anemia. Continue HEATHER with dialysis. 7. Overall, edema seems to be better. We will continue on dialysis as tolerated.
[2017-03-18] MEDS: Amitriptyline HCl 25 MG TAB PO SCH (20:22)
[2017-03-18] MEDS: Atorvastatin Calcium 20 MG TAB PO SCH (20:23)
[2017-03-19] MEDS: traMADol HCl 50 MG TAB PO PRN ×2 (02:04→10:07)
[2017-03-19 05:48] LABS: #Eosinphils 0.1 thou/uL (0.0-0.7); #Lymphocytes 0.9 thou/uL (1.20-3.40); #Monocytes 0.3 thou/uL (0.11-0.59); #Neutrophils 3.5 thou/uL (1.40-6.50); %Basophils 0.2 % (0.0-1.0); %Eosinophils 1.3 % (0.0-10.0); %Lymphocytes 18.7 % (21.0-51.0); %Neutrophils 72.8 % (42.0-75.0); Hemoglobin 7.2 g/dL (12.0-16.0); Mean Corpuscular HGB CONC 32.2 g/dL (32.0-36.0); Mean Corpuscular Hemoglobin 31.3 pg (27.0-31.0); Mean Corpuscular Volume 97.2 fl (81.0-99.0); Mean Platelet Volume 7.2 fL (7.4-10.4); Platelet Count 176 thou/uL (130-400); RBC Distribution Width 16.8 % (11.5-14.5); White Blood Cell (WBC) Count 4.8 thou/uL (4.8-10.8)
[2017-03-19 05:52] LABS: INR-International Normal Ratio 1.3; Prothrombin Time 16.5 SEC (12.0-14.7)
[2017-03-19 06:00] LABS: Anion Gap 11 mmol/L (10-20); BUN (Urea Nitrogen) 26 mg/dL (9.8-20.1); Calc. Creatinine Clearance 27 mL/min (70-130); Calcium 8.5 mg/dL (7.8-10.44); Carbon Dioxide 29 mmol/L (23-31); Chloride 98 mmol/L (98-107); Estimated GFR-MDRD 14; Glucose 68 mg/dL (80-115); Potassium 4.3 mmol/L (3.5-5.1); Sodium 134 mmol/L (136-145)
[2017-03-19 08:18] VITALS: TEMP 99.1
[2017-03-19] MEDS: hydrALAZINE 25 MG TAB PO SCH (08:24)
[2017-03-19] MEDS: Ferrous Sulfate 325 MG TAB PO SCH (08:24)
[2017-03-19] MEDS: Folic Acid 1 MG TAB PO SCH (08:24)
[2017-03-19] MEDS: Sevelamer Carbonate 800 MG TAB PO SCH ×2 (08:24→12:45)
[2017-03-19] MEDS: HYDROcodone/Acetaminophen 5/325 mg Tablet PO PRN (08:24)
[2017-03-19] MEDS: Carvedilol 6.25 MG TAB PO SCH (08:25)
[2017-03-19] MEDS: Insulin Detemir 100 UNITS/ML 35 UNITS in Pre-Filled Syringe 1 EACH SC SCH (08:26)
--- NOTE | 2017-03-19 08:50 | PDOC.PN ---
- Subjective Encounter Start Date: 03/19/17 Encounter Start Time: 07:00 -: old records requested/rev Patient seen and examined. No new complaints. No overnight events she is hurting but that is not abnormal for her, - Objective Resuscitation Status: Resuscitation Status FULL:Full Resuscitation MAR Reviewed: Yes Vital Signs & Weight: Vital Signs (12 hours) Temp Pulse Resp BP Pulse Ox 03/19/17 08:00 99.1 F 88 16 109/67 91 L Weight Admit Weight 246 lb 14.4 oz Weight 223 lb 1.725 oz I&O: 03/18/17 03/19/17 03/20/17 06:59 06:59 06:59 Intake Total 850 800 Output Total 2700 Balance -1850 800 Result Diagrams: 03/19/17 04:32 03/19/17 04:32 Additional Labs: Accuchecks 03/19/17 03/18/17 03/18/17 05:53 19:40 16:32 POC Glucose 78 332 H 224 H 03/18/17 11:05 POC Glucose 267 H Phys Exam - Physical Examination Constitutional: NAD HEENT: PERRLA, moist MMs, sclera anicteric, TM's clear Neck: no JVD, supple, full ROM Respiratory: no wheezing, no rales, no rhonchi Cardiovascular: RRR, no significant murmur, no rub Gastrointestinal: soft, non-tender, no distention, positive bowel sounds Musculoskeletal: no edema, pulses present Neurological: non-focal Psychiatric: normal affect, A&O x 3 Skin: normal turgor Deviation from normal: wound vac in place at decubitus ulcer Dx/Plan (1) Demand ischemia of myocardium Code(s): I24.8 - OTHER FORMS OF ACUTE ISCHEMIC HEART DISEASE Status: Acute (2) Physical deconditioning Code(s): R53.81 - OTHER MALAISE Status: Acute Comment: (3) Stenosis of left subclavian vein Code(s): I87.1 - COMPRESSION OF VEIN Status: Acute Comment: Seen on AV shunt angiogram- pt had L arm edema. Will need new access in the future. (4) Thrombocytopenia Code(s): D69.6 - THROMBOCYTOPENIA, UNSPECIFIED Status: Acute (5) Anemia due to end stage renal disease Code(s): N18.6 - END STAGE RENAL DISEASE; D63.1 - ANEMIA IN CHRONIC KIDNEY DISEASE Status: Chronic Comment: (6) Coronary artery disease Code(s): I25.10 - ATHSCL HEART DISEASE OF [place] CORONARY ARTERY W/O ANG PCTRS Status: Chronic Qualifiers: Coronary Disease-Associated Artery/Lesion type: unspecified vessel or lesion type [place] vs. transplanted heart: [place] heart Associated angina: without angina Qualified Code(s): I25.10 - Atherosclerotic heart disease of [place] coronary artery without angina pectoris Comment: (7) Diabetes mellitus Code(s): E11.9 - TYPE 2 DIABETES MELLITUS WITHOUT COMPLICATIONS Status: Chronic Qualifiers: Diabetes mellitus type: type 2 Diabetes mellitus complication status: with kidney complications Diabetes mellitus complication detail: with chronic kidney disease Chronic kidney disease stage: on chronic dialysis Comment: (8) Dyslipidemia Code(s): E78.5 - HYPERLIPIDEMIA, UNSPECIFIED Status: Chronic (9) ESRD (end stage renal disease) on dialysis Code(s): N18.6 - END STAGE RENAL DISEASE; Z99.2 - DEPENDENCE ON RENAL DIALYSIS Status: Chronic Comment: (10) History of DVT (deep vein thrombosis) Code(s): Z86.718 - PERSONAL HISTORY OF OTHER VENOUS THROMBOSIS AND EMBOLISM Status: Chronic Comment: On RAPHAEL Arroyo. (11) Hypertension Code(s): I10 - ESSENTIAL (PRIMARY) HYPERTENSION Status: Chronic Qualifiers: Hypertension type: essential hypertension Qualified Code(s): I10 - Essential (primary) hypertension Comment: At goal. (12) Hypertensive kidney disease with end-stage renal disease on dialysis Code(s): I12.0 - HYP CHR KIDNEY DISEASE W STAGE 5 CHR KIDNEY DISEASE OR ESRD; N18.6 - END STAGE RENAL DISEASE; Z99.2 - DEPENDENCE ON RENAL DIALYSIS Status: Chronic (13) Obesity Code(s): E66.9 - OBESITY, UNSPECIFIED Status: Chronic (14) Sacral decubitus ulcer Status: Chronic Comment: s/p debridement. Cx grew E. Coli, meléndez sensitive. Started on Omnicef. (15) Secondary hyperparathyroidism of renal origin Code(s): N25.81 - SECONDARY HYPERPARATHYROIDISM OF RENAL ORIGIN Status: Chronic (16) Uterine cancer Code(s): C55 - MALIGNANT NEOPLASM OF UTERUS, PART UNSPECIFIED Status: Chronic Comment: s/p MICHAEL BSO (17) Hyperkalemia Code(s): E87.5 - HYPERKALEMIA Status: Resolved (18) Hypoglycemia Code(s): E16.2 - HYPOGLYCEMIA, UNSPECIFIED Status: Resolved Comment: (19) Metabolic acidosis Code(s): E87.2 - ACIDOSIS Status: Resolved Comment: 03/09 ESRD. HD per nephrology. - Plan cont current plan of care, continue antibiotics, PT/OT, public health social worker * medication reviewed as below * symptomatic treatment * today plan for DC to [facility] when wound vac arranged there * spoke with case manager specialist * medically stable * see discharge katie. Review of Systems - Review of Systems ENT: negative: Ear Pain, Ear Discharge, Nose Pain, Nose Discharge, Nose Congestion, Mouth Pain, Mouth Swelling, Throat Pain, Throat Swelling, Other Respiratory: negative: Cough, Dry, Shortness of Breath, Hemoptysis, SOB with Excertion, Pleuritic Pain, Sputum, Wheezing Cardiovascular: negative: chest pain, palpitations, orthopnea, paroxysmal nocturnal dyspnea, edema, light headedness, other Gastrointestinal: negative: Nausea, Vomiting, Abdominal Pain, Diarrhea, Constipation, Melena, Hematochezia, Other Genitourinary: negative: Dysuria, Frequency, Incontinence, Hematuria, Retention , Other Musculoskeletal: negative: Neck Pain, Shoulder Pain, Arm Pain, Back Pain, Hand Pain, Leg Pain, Foot Pain, Other Skin: negative: Rash, Lesions, Samuel, Bruising, Other - Medications/Allergies Allergies/Adverse Reactions: Allergies Allergy/AdvReac Type Severity Reaction Status Date / Time ofloxacin [From Floxin] Allergy Mild Verified 01/27/17 15:25 metronidazole [From Flagyl] Allergy Verified 01/27/17 15:25 Medications: Current Medications Acetaminophen (Tylenol) 650 mg PO Q4H PRN PRN Reason: Headache/Fever or Pain Last Admin: 03/15/17 07:45 Dose: 650 mg Acetaminophen (Tylenol) 1,000 mg PO Q6H PRN PRN Reason: Moderate to Severe Pain (6-10) Hydrocodone Bitart/Acetaminophen ([place] 5/325) 1 tab PO TID PRN PRN Reason: Moderate Pain (4-6) Last Admin: 03/18/17 20:24 Dose: 1 tab Amitriptyline HCl (Elavil) 75 mg PO HS NICHO Last Admin: 03/18/17 20:22 Dose: 75 mg Amoxicillin/Clavulanate Potassium (Augmentin) 250 mg PO Q8HR [facility] Atorvastatin Calcium (Lipitor) 20 mg PO [facility] Last Admin: 03/18/17 20:23 Dose: 20 mg Bisacodyl (Dulcolax) 10 mg PO DAILYPRN PRN PRN Reason: Constipation Carvedilol (Coreg) 6.25 mg PO BID [facility] Last Admin: 03/18/17 20:22 Dose: 6.25 mg Clonidine (Catapres) 0.1 mg PO Q4H PRN PRN Reason: Systolic BP > 160 Dextrose/Water (Dextrose 50%) 25 gm SLOW IVP PRN PRN PRN Reason: Hypoglycemia Epoetin Holger (Procrit) 5,000 units IVP TuThSa [facility] Last Admin: 03/17/17 16:47 Dose: 5,000 units Ferrous Sulfate (Feosol) 325 mg PO BID[facility] Last Admin: 03/18/17 16:07 Dose: 325 mg Folic Acid (Folvite) 1 mg PO DAILY [facility] Last Admin: 03/18/17 08:16 Dose: 1 mg Glucagon (Glucagon) 1 mg IM PRN PRN PRN Reason: Hypoglycemia Hydralazine HCl (Apresoline) 50 mg PO TID [facility] Last Admin: 03/18/17 20:23 Dose: 50 mg Insulin Detemir 20 units/ (Miscellaneous Medication) 0.2 mls @ 0 mls/hr SC [facility] Last Admin: 03/11/17 21:41 Dose: Not Given Insulin Detemir 35 units/ (Miscellaneous Medication) 0.35 mls @ 0 mls/hr SC [facility] Last Admin: 03/18/17 08:17 Dose: 0.35 mls Dextrose/Water (D5w) 1,000 mls @ 0 mls/hr IV .Q0M PRN; As Directed PRN Reason: Hypoglycemia Insulin Human Lispro (Humalog) 0 units SC .MILD SLIDING SCALE PRN PRN Reason: Mild Correctional Scale Last Admin: 03/18/17 23:06 Dose: 5 unit Morphine Sulfate (Morphine) 2 mg SLOW IVP Q4H PRN PRN Reason: Pain Last Admin: 03/17/17 12:11 Dose: 2 mg Ondansetron HCl (Zofran Odt) 4 mg PO Q6H PRN PRN Reason: Nausea/Vomiting Ondansetron HCl (Zofran) 4 mg IVP Q6H PRN PRN Reason: Nausea/Vomiting Last Admin: 03/13/17 08:32 Dose: 4 mg Pantoprazole Sodium (Protonix) 40 mg PO Q24HR [facility] Last Admin: 03/18/17 08:16 Dose: 40 mg Sevelamer Carbonate (Renvela) 800 mg PO TID-WM [facility] Last Admin: 03/18/17 17:06 Dose: 800 mg Sodium Chloride (Flush - Normal Saline) 10 ml IVF Q12HR [facility] Last Admin: 03/18/17 20:27 Dose: 10 ml Sodium Chloride (Flush - Normal Saline) 10 ml IVF PRN PRN PRN Reason: Saline Flush Tramadol HCl (Ultram) 50 mg PO Q6H PRN PRN Reason: Moderate Pain (4-6) Last Admin: 03/17/17 20:35 Dose: 50 mg
[2017-03-19 08:57] VITALS: BP 112/68
[2017-03-19] MEDS ORDERED: Cefdinir 300 MG CAP PO SCH (09:00)
--- NOTE | 2017-03-19 10:45 | PRG ---
DATE OF SERVICE: 03/19/2017 SUBJECTIVE: This is a 61-year-old female being seen for end-stage renal disease. The patient denies any nausea, vomiting, or chest pain. PHYSICAL EXAMINATION: GENERAL: Patient is awake, alert. VITAL SIGNS: Afebrile, pulse 80, breathing at 16, blood pressure 112/60. HEAD/NECK: Normocephalic. Atraumatic. EYES: EOMI. No deformity. EARS: Clear. No ulcers. NOSE: Intact. No lesions. MOUTH: Clear. No discharge. THROAT: Clear. No exudate. LUNGS: Clear. No crackles. CARDIAC: S1, S2. No rub. ABDOMEN: Benign. BS+. GENITALIA/RECTUM: Khan absent. BACK/EXTREMITIES: Edema 0+ Ulcer- NEUROLOGICAL: Alert and motor intact. SKIN: Rash- Bruise- LYMPHATICS: Edema- Ulcer- LABORATORY DATA: Hemoglobin 7.2, potassium 4.6. ASSESSMENT AND RECOMMENDATIONS: 1. Chronic kidney disease, continue on hemodialysis Sunday, , and Sunday. 2. Anemia, plan transfusion. 3. Hypertension, stable. 4. Medications based on glomerular filtration rate are appropriate.
--- NOTE | 2017-03-19 11:02 | PRG ---
DATE OF SERVICE: 03/19/2017 Yessenia Allen is being transferred to the [facility] today. She dialyzes Sunday, , and Sunday using left arm fistula that I placed in 2013, basilic vein transposition type. She has been to the [place] [facility], and a stent has been placed in the mid fistula and al so in the left subclavian vein. She has required frequent interventions to maintain patency. Sunday , 3 days ago, intervention was performed here. It was scheduled for [place], but she was in the hosp ital, thus was performed here. SHIELD RUNNER of the left subclavian vein stent was performed relieving the hig h-grade obstruction. This is a recurrent problem that will eventually result in occlusion of left ar m graft. She has development of collaterals. Patient has a large decubitus, for which wound VAC is being treated. She completed radiation and chemotherapy for endometrial cancer at [facility] result ing in the decubitus and then transferred here for care of her decubitus. The patient had ultrasound vein mapping 04/2013, noting the right upper arm cephalic vein to be 2.1, 2.3, 1.7 mm in the distal arm and 2.1 mm in the antecubital fossa. Her basilic vein was of good caliber, 4 mm, 3 mm, 3.7 mm, a nd 4 mm in 2013. Ultrasound vein mapping of the right arm has been ordered today to reassess this. As I walked into the room, she has a bandage over her right antecubital fossa and IV in her right mid forearm. This was immediately removed. Patient has a MediPort, right internal jugular vein, which has not been accessed. Orders have been written today to avoid IV access blood draws from her right arm and to save her right arm for dialysis access. She will need a right arm fistula in the future f or this failing left arm fistula. I would probably avoid placing a prosthetic graft in the right arm anticipating that this may not be used for an unknown period of time and would reserve a prosthetic for the future. [facility] vein mapping of right arm. I will set up Sunday and Sunday or Sunday surgery date in the next 2 weeks for right arm fi stula pending vein mapping results.
--- NOTE | 2017-03-19 12:04 | ULT ---
RIGHT UPPER EXTREMITY VEIN MAPPING: HISTORY: Dialysis access. FINDINGS: CEPHALIC VEIN: Proximal humerus 3.2 mm Mid humerus 3.4 mm Distal 3.1 mm Elbow 3.4 mm Proximal forearm 2.5 mm Mid forearm 4.0 mm Distal forearm 3.4 mm BASILIC VEIN: Proximal humerus 5.3 mm Mid humerus 3.8 mm Distal 5.4 mm Elbow 4.0 mm Proximal forearm 4.0 mm Mid forearm 3.9 mm Distal forearm 1.4 mm Right brachial artery 4 mm. Right radial artery 1.7 mm. Right ulnar artery 1.5 mm. IMPRESSION: Vein mapping as discussed above. POS: ARTUR
--- NOTE | 2017-03-19 13:33 | DIS ---
DATE OF ADMISSION: 03/09/2017 DATE OF DISCHARGE: 03/19/2017 PRIMARY CARE PHYSICIAN: Mirela Bui. DISCHARGE DISPOSITION: [facility]. PRIMARY DISCHARGE DIAGNOSES: 1. Demand ischemia of myocardium. 2. Physical deconditioning. 3. Stenosis of left subclavian vein. 4. Thrombocytopenia. 5. Stage IV sacral decubitus ulcer, status post I&D. 6. Metabolic acidosis. 7. Hypoglycemia. 8. Hyperkalemia. SECONDARY DISCHARGE DIAGNOSES: History of uterine cancer, secondary hyperparathyroidism of renal juan gin, obesity with BMI of 43, end-stage renal disease on hemodialysis, history of DVT, hypertension, d yslipidemia, diabetes type 2, coronary artery disease and anemia due to renal disease. PRIMARY PROCEDURES/OPERATIONS: Fistulogram, surgical debridement of decubitus ulcer, maintenance hem odialysis. RADIOLOGICAL INVESTIGATION: Chest x-ray, AV shunts, angiogram marking, ultrasonography. SIGNIFICANT LABS: WBC 4.8, hemoglobin 7.2 and platelets 176,000. INR 1.3. Sodium 134, potassium 4. 3, BUN 26, creatinine 3.36 and calcium 8.5. Sacral decubitus ulcer culture grew Proteus mirabilis, E . coli, and anaerobic gram negative buddy and cocci. DISCHARGE MEDICATIONS: Augmentin 250 mg p.o. t.i.d. for 7 more days, Humalog insulin sliding scale, Tylenol 650 mg q.4 hourly p.r.n., amitriptyline 75 mg p.o. at bedtime, Lipitor 20 mg p.o. at bedtime, Tums 1000 mg p.o. q.4 hourly p.r.n., Coreg 6.25 mg p.o. b.i.d., clonidine 0.1 mg q.4 hourly p.r.n., hydralazine 50 mg p.o. t.i.d., Lantus 10 units in the evening and 25 units in the morning, Protonix 4 0 mg p.o. daily, MiraLax 17 grams p.o. daily, Renvela 800 mg p.o. t.i.d. and tramadol 50 mg q.4 hourl y p.r.n. CONTRAINDICATIONS: None. CODE STATUS: FULL CODE. INPATIENT CONSULTANTS: Dr. Monterroso was consulted for surgical debridement. Dr. Mccarthy was kemar rodrigues for dialysis. TEST RESULTS PENDING ON DISCHARGE: None. ALLERGIES: OFLOXACIN and FLAGYL. DISCHARGE PLAN: Post hospital, the [facility] with woun d VAC. HOSPITAL COURSE: A 61-year-old female who was admitted by Dr. Zach Whittaker on 03/09/2017. Please see h is H&P for further details. On admission, the patient was confused. She was having more weakness. She was on anticoagulation therapy for DVT. This patient had physical deconditioning and she had sac ral decubitus ulcer that required debridement by surgeon. Patient was getting maintenance hemodialys is per Nephrology. This patient was having sepsis with demand ischemia of myocardium and she had sig nificant physical deconditioning. This patient was qualified for jail care at [facility]. Wound VAC is already arranged. On discharge, we changed to Augmentin. The res t of medication was continued as per previous. While in the hospital, she had thrombocytopenia that is improving. Hypoglycemia, resolved. Hyperkalemia, resolved. Metabolic acidosis also resolved. Patient is seen and examined at bedside today. Please see my progress note from today for further de tails. Old chart reviewed today and this patient is medically stable for discharge today. She will need access for dialysis in the near future and for that reason, the patient will follow up with Dr. Monterroso. Total time spent on discharge day more than 30 minutes.
[2017-03-19] MEDS ORDERED: Amoxicillin/Potassium Clav 250 MG TAB PO SCH (14:00)
--- NOTE | 2017-03-19 16:36 | RAD ---
PROCEDURES: 1. Left upper extremity arteriovenous dialysis fistulogram with venogram to the SVC. 2.FINANCIAL FOUNDATIONS REPRESENTATIVE focal severe instent stenosis left subclavian vein. 03/16/17 HISTORY: Patient with left upper extremity arm and forearm swelling which started this morning. Patient has en d stage renal disease and left upper extremity arteriovenous dialysis fistula. Fistulogram and venogr am were requested. FLUOROSCOPY: Total fluoroscopy time is 3.7 minutes with total dose of 37,778 mGy*cm2. TECHNIQUE: After informed consent was obtained, patient was placed on the angiography table in the supine positi on. The left upper extremity was meticulously prepped and draped in the usual sterile fashion. Skin a nd subcutaneous tissues were infiltrated with buffered 1% lidocaine for local anesthesia at the inten ded puncture site. The left upper extremity arteriovenous dialysis fistula was accessed, directed in the venous direction and a 5 [place]ym[place] introducer sheath was placed. A fistulogram and venogram of the S VC were performed. Manual compression was applied to the venous outflow, and contrast was faintly ref luxed through the arteriovenous anastomosis. The introducer sheath was exchanged over a 0.035 inch Amplatz guidewire for a 6 [place]ym[place] vascular sheat h. An 8 mm x 4 cm angioplasty balloon was placed over the guide wire and positioned across the focal area of severe narrowing in the left subclavian stent. Angioplasty was performed. Although the lumina l narrowing was improved, persistent moderate area of narrowing persisted. As the result, the 8 mm di ameter Angioplasty balloon was exchanged over the guidewire for a 10 mm x 4 cm angioplasty balloon. P TA was performed in this region. Followup venogram demonstrates improved luminal diameter and brisk f low throughout the fistula. As the result, the procedure was terminated. The guide wire and 6 Cymro vascular sheath were removed. Hemostasis was achieved with direct pressure. A dry sterile dressing wa s placed. The patient tolerated the procedure well without immediate complication. FINDINGS: Left upper extremity arteriovenous dialysis fistula with two separate stents within the venous outflo w, one of which is located within the left subclavian vein and demonstrates severe in-stent stenosis. FINANCIAL FOUNDATIONS REPRESENTATIVE of this focal area of narrowing was obtained up to 10 mm in diameter with improvement in luminal diameter and brisk flow postprocedure. Patient also noted decrease in pressure sensation and relief from left upper extremity discomfort after angioplasty. Remainder of the venous outflow is patent to the SVC. Arteriovenous anastomosis is also patent. IMPRESSION: Focal severe in-stent stenosis left subclavian vein. FINANCIAL FOUNDATIONS REPRESENTATIVE was performed up to 10 mm in diameter with i mprovement in luminal diameter and brisk flow throughout the fistula postprocedure.
--- NOTE | 2017-03-20 13:53 | SPC ---
PROCEDURES: 1. Left upper extremity arteriovenous dialysis fistulogram with venogram to the SVC. 2.DOUBLE NEEDLE OPERATOR focal severe instent stenosis left subclavian vein. 03/16/17 HISTORY: Patient with left upper extremity arm and forearm swelling which started this morning. Patient has en d stage renal disease and left upper extremity arteriovenous dialysis fistula. Fistulogram and venogr am were requested. FLUOROSCOPY: Total fluoroscopy time is 3.7 minutes with total dose of 37,778 mGy*cm2. TECHNIQUE: After informed consent was obtained, patient was placed on the angiography table in the supine positi on. The left upper extremity was meticulously prepped and draped in the usual sterile fashion. Skin a nd subcutaneous tissues were infiltrated with buffered 1% lidocaine for local anesthesia at the inten ded puncture site. The left upper extremity arteriovenous dialysis fistula was accessed, directed in the venous direction and a 5 Filipino introducer sheath was placed. A fistulogram and venogram of the S VC were performed. Manual compression was applied to the venous outflow, and contrast was faintly ref luxed through the arteriovenous anastomosis. The introducer sheath was exchanged over a 0.035 inch Amplatz guidewire for a 6 Filipino vascular sheat h. An 8 mm x 4 cm angioplasty balloon was placed over the guide wire and positioned across the focal area of severe narrowing in the left subclavian stent. Angioplasty was performed. Although the lumina l narrowing was improved, persistent moderate area of narrowing persisted. As the result, the 8 mm di ameter Angioplasty balloon was exchanged over the guidewire for a 10 mm x 4 cm angioplasty balloon. P TA was performed in this region. Followup venogram demonstrates improved luminal diameter and brisk f low throughout the fistula. As the result, the procedure was terminated. The guide wire and 6 Filipino vascular sheath were removed. Hemostasis was achieved with direct pressure. A dry sterile dressing wa s placed. The patient tolerated the procedure well without immediate complication. FINDINGS: Left upper extremity arteriovenous dialysis fistula with two separate stents within the venous outflo w, one of which is located within the left subclavian vein and demonstrates severe in-stent stenosis. DOUBLE NEEDLE OPERATOR of this focal area of narrowing was obtained up to 10 mm in diameter with improvement in luminal diameter and brisk flow postprocedure. Patient also noted decrease in pressure sensation and relief from left upper extremity discomfort after angioplasty. Remainder of the venous outflow is patent to the SVC. Arteriovenous anastomosis is also patent. IMPRESSION: Focal severe in-stent stenosis left subclavian vein. DOUBLE NEEDLE OPERATOR was performed up to 10 mm in diameter with i mprovement in luminal diameter and brisk flow throughout the fistula postprocedure.
--- NOTE | 2017-03-30 16:39 | PQF ---
BENY NARAYAN SALIM NOORJIBHAI MD [id number] CLINICAL DOCUMENTATION CLARIFICATION FORM: POST DISCHARGE Addendum to original discharge summary date: ____ Late entry note date: __ BENY NARAYAN [id number] PLEASE DOCUMENT YOUR RESPONSE BELOW PLEASE FAX RESPONSE BACK TO YOUR INPUT IS NEEDED TO CORRECTLY CODE A DIAGNOSIS FOR YOUR PATIENT. DATE: 03/30/2017 ATTN: Dayton James MD Please exercise your independent, professional judgment in responding to the clarification form. Clinical indicators are provided on the bottom of this form for your review Please check appropriate box(s) to clarify if the following diagnosis has been ruled in our ruled out: SEPSIS [ ] Ruled in diagnosis [ ] Continue to treat [ ] Resolved [ ] Ruled out diagnosis [ ] Cannot rule out diagnosis [ ] Other diagnosis [ x ] Unable to determine In addition, please specify: Present on Admission (POA): [ ] Yes [ ] No [ x ] Unable to determine For continuity of documentation, please document condition throughout progress notes and discharge summary. Thank You. CLINICAL INDICATORS - SIGNS / SYMPTOMS / LABS DISCHARGE SUMMARY SIGNIFICANT LABS: WBC 4.8, hemoglobin 7.2 and platelets 176,000. INR 1.3. Sodium 134, potassium 4.3, BUN 26, creatinine 3.36 and calcium 8.5. Sacral decubitus ulcer grew Proteus mirabilis, E.coli, and anaerobic gram negative buddy an cocci. HOSPITAL COURSE: "The patient was having sepsis with demand ischemia of myocardium and she had significant physical deconditioning." H&P VITAL SIGNS: Blood pressure 117/41, pulse 89, respirations 16, and O2 sat 99 % on 2 liters, temperature 99.2 LABORATORY DATA: White blood cell count 7.6 CONSULTATION: 03/09 ASSESSMENT AND PLAN: Metabolic Acidosis ER VITAL SIGNS: BP 139/73, Pulse 114, Resp 20, Temp 99.1 (Oral), Pain: 8, O2 sat 93 on Room Air DIAGNOSIS Final: PRIMARY: ESRD, ADDITIONAL: Hyperkalemia, Indeterminate troponin. RISK FACTORS Diabetes Cancer Surgery Advancing Age TREATMENTS Daily CBC, blood/sputum/wound cx IV Fuids (This form is maintained as a part of the permanent medical record) 2014 [employer]. All Rights Reserved [email or web address] [phone] MTDD
--- NOTE | 2017-03-30 17:01 | PQF ---
BENY NARAYAN RICHARD D MD [id number] CLINICAL DOCUMENTATION CLARIFICATION FORM: POST DISCHARGE Addendum to original discharge summary date: ____ Late entry note date: __ DATE: 03/30/2017 ATTN: Delvis Monterroso MD Please exercise your independent, professional judgment in responding to the clarification form. Clinical indicators are provided on the bottom of this form for your review Please check appropriate box(s): [ ] Excisional Debridement: [ ] Excised [ ] Cut away [ ] Other: Depth / layer: (deepest layer of debridement): [ ] Skin[ ] Subcutaneous Tissue [ ] Fascia [ ] Muscle [ ] Tendon [ ] Bone Appearance of wound: (e.g., down to fresh bleeding tissue, etc.) Margins: (please specify): / x x Instruments used: [ ] Scissors [ ] Scalpel [ ] Other: [ ] Non-excisional Debridement: (Removal by flushing, brushing, chemical, or washing) Depth / layer: (deepest layer of debridement): [ ] Skin[ ] Subcutaneous [ ] Fascia [ ] Muscle [ ] Tendon [ ] Bone [ ] Incision and Drainage only (No Debridement): Depth:[ ] Skin [ ] Subcutaneous [ ] Fascia [ ] Muscle [ ] Tendon [ ] Bone [ ] Escharectomy [ ] Other procedure diagnosis [ ] Unable to determine For continuity of documentation, please document condition throughout progress notes and discharge summary. Thank You. CLINICAL INDICATORS - SIGNS / SYMPTOMS / LABS: PROCEDURES: Debridement of skin and subcutaneous tissue to the deep sacrum, mostly right buttocks. Wound left open to heal by secondary intention. Surgicell and Isabel placed for hemostasis. Wound VAC to be applied tomorrow RISK FACTORS: Necrotic sacral decubitus TREATMENTS: Debridement, Wound VAC (This form is maintained as a part of the permanent medical record) 2014 [employer], [email or web address]. All Rights Reserved [email or web address] [phone] MTDD
== END 2017-03-19 14:52 | DRG 981 ==
LOC: ERS 01:35 → 2NO 03:46 → T4-A 03-12 13:42
PROVIDERS: ADMIT Internal Medicine Addiction Medicine; ATTEND Internal Medicine Addiction Medicine
PROC: 5A1D70Z Performance of Urinary Filtration, Intermittent, Less than 6 Hours Per Day (ICD-10-PCS; 2017-03-09)
PROC: 30233N1 Transfusion of Nonautologous Red Blood Cells into Peripheral Vein, Percutaneous Approach (ICD-10-PCS; 2017-03-10)
PROC: 5A1D70Z Performance of Urinary Filtration, Intermittent, Less than 6 Hours Per Day (ICD-10-PCS; 2017-03-10)
PROC: 5A1D70Z Performance of Urinary Filtration, Intermittent, Less than 6 Hours Per Day (ICD-10-PCS; 2017-03-12)
PROC: 5A1D70Z Performance of Urinary Filtration, Intermittent, Less than 6 Hours Per Day (ICD-10-PCS; 2017-03-13)
PROC: 0KDN0ZZ Extraction of Right Hip Muscle, Open Approach (ICD-10-PCS; principal; 2017-03-14)
PROC: 5A1D70Z Performance of Urinary Filtration, Intermittent, Less than 6 Hours Per Day (ICD-10-PCS; 2017-03-15)
PROC: 05763ZZ Dilation of Left Subclavian Vein, Percutaneous Approach (ICD-10-PCS; 2017-03-16)
PROC: B51W1ZZ Fluoroscopy of Dialysis Shunt/Fistula using Low Osmolar Contrast (ICD-10-PCS; 2017-03-16)
PROC: B5181ZA Fluoroscopy of Superior Vena Cava using Low Osmolar Contrast, Guidance (ICD-10-PCS; 2017-03-16)
PROC: 5A1D70Z Performance of Urinary Filtration, Intermittent, Less than 6 Hours Per Day (ICD-10-PCS; 2017-03-17)
DX: I13.11 Hypertensive heart and chronic kidney disease without heart failure, with stage 5 chronic kidney disease, or end stage renal disease (principal); L89.154 Pressure ulcer of sacral region, stage 4; D69.6 Thrombocytopenia, unspecified; E11.22 Type 2 diabetes mellitus with diabetic chronic kidney disease; E11.649 Type 2 diabetes mellitus with hypoglycemia without coma; E66.01 Morbid (severe) obesity due to excess calories; N18.6 End stage renal disease; E87.2 Acidosis; I24.8 Other forms of acute ischemic heart disease; I87.1 Compression of vein; N25.81 Secondary hyperparathyroidism of renal origin; Z68.41 Body mass index [BMI] 40.0-44.9, adult; T82.856A Stenosis of peripheral vascular stent, initial encounter; E87.5 Hyperkalemia; C55 Malignant neoplasm of uterus, part unspecified; D63.1 Anemia in chronic kidney disease; I25.10 Atherosclerotic heart disease of native coronary artery without angina pectoris; E78.5 Hyperlipidemia, unspecified; Z86.718 Personal history of other venous thrombosis and embolism; Z85.41 Personal history of malignant neoplasm of cervix uteri; Z79.4 Long term (current) use of insulin; E87.70 Fluid overload, unspecified; Z99.2 Dependence on renal dialysis
CPT/HCPCS: 20501; 36415; 36416; 36430; 36901; 36902; 71045; 76080; 80048; 80053; 82553; 82607; 82728; 82746; 83540; 83550; 83690; 83880; 84100; 84484; 85025; 85610; 85730; 86850; 86900; 86901; 87070; 87077; 87186; 87205; 87340; 90935; 93005; 93970; 96374; A4216; C1725; C1769; G0257; G0365; G8978-GP-CN; G8979-GP-CL; G8987-GO-CM; G8988-GO-CK; J1644; J1815; J2001; J2250; J2270; J2405; J2543; J2704; J3010; P9016; P9047; Q4081

== ENCOUNTER 2017-03-30 07:29 | Day surgery (SDC) | payer MEDICARE ==
[2017-03-30 09:18] LABS: Anion Gap 15 mmol/L (10-20); BUN (Urea Nitrogen) 28 mg/dL (9.8-20.1); Calc. Creatinine Clearance 31 mL/min (70-130); Calcium 8.1 mg/dL (7.8-10.44); Carbon Dioxide 24 mmol/L (23-31); Chloride 97 mmol/L (98-107); Estimated GFR-MDRD 16; Glucose 145 mg/dL (80-115); Potassium 4.2 mmol/L (3.5-5.1); Sodium 132 mmol/L (136-145)
[2017-03-30] MEDS ORDERED: Lidocaine 2% w/Epinephrine 1:200K 20 ML VIAL ONE (09:34)
[2017-03-30] MEDS ORDERED: Bupivacaine 0.5% 10 ML VIAL ONE (09:34)
[2017-03-30] MEDS ORDERED: Protamine Sulfate 50 MG/5 ML VIAL ONE (09:34)
[2017-03-30] MEDS ORDERED: Heparin 5,000 UNITS/ML VIAL ONE (09:34)
[2017-03-30] MEDS ORDERED: Fentanyl 100 MCG/2 ML VIAL ONE ×2 (09:37)
[2017-03-30] MEDS ORDERED: CEFAZOLIN/Water 2 GM/20 ML SYRINGE ONE (10:09)
--- NOTE | 2017-03-30 11:44 | OP ---
DATE OF OPERATION: 03/30/2017 PREOPERATIVE DIAGNOSES: Morbid obesity, [facility] resident, end-stage renal disease, failing fist willian with multiple stents in subclavian vein along the fistula in the left arm. PROCEDURES: Right arm primary fistula, perforating branch antecubital vein, outflow primarily basili c vein with probably outflow short segment cephalic vein (occluded by coronary dilators in the distal upper arm). Retrograde antecubital vein preserved. A 3.5 mm coronary dilator passing nonobstructed out the basilic vein and an excellent Doppler signal at the end. The patient will need basilic vein transposition fistula in the future. SURGEON: Delvis Monterroso M.D. ANESTHESIA: Regional TIVA. PROCEDURE IN DETAIL: Patient was taken to the operating room where under regional anesthesia and TIV A anesthesia, right upper extremity was prepared with ChloraPrep, draped in routine fashion. Incisio n made in the proximal volar forearm, carried down through the skin and subcutaneous tissue. Antecub ital vein was identified and the perforating branch dissected free and branches divided between clips and it was spatulated over a branch point and interrogated with coronary dilators. Patient was give n 6000 units of heparin intravenously. Dilators from a 2 mm to 3.5 mm coronary dilators passed out t he basilic vein outflow without obstruction. Dilators to 3 mm coronary dilators passed out the cepha lic vein, although it seemed to me obstructed in the distal upper arm. Retrograde antecubital vein p reserved. Perforating branch shows excellent caliber and condition. The proximal radial artery was dissected free and slightly arteriosclerotic but was of good caliber. After adequate heparin circula tion time, proximal radial artery was clamped proximally and distally and longitudinal arteriotomy ma de sharply and elongated with Olivarez scissors and vein accordingly spatulated for 2 cm anastomosis bet ween the end perforating branch of antecubital vein to the side of radial artery using continuous 6-0 Prolene. Once anastomosis was complete, vascular clamps released and there was good outflow through the fistula with a Doppler signal noted in the distal cephalic vein, but not in the upper arm corres ponding to findings above. A good signal noted in the basilic vein outflow. Good hemostasis noted. The patient was given 25 mg of protamine intravenously by Anesthesia. The patient tolerated the pro cedure well and subcutaneous tissues approximated with 3-0 Monocryl, skin with subdermal 4-0 Monocryl and DermaGlue applied.
== END 2017-03-30 14:30 | disposition home or self-care (01) ==
LOC: SDC 07:29
PROVIDERS: ATTEND Specialist
PROC: 031B0AF Bypass Right Radial Artery to Lower Arm Vein with Autologous Arterial Tissue, Open Approach (ICD-10-PCS; principal; 2017-03-30)
DX: I12.0 Hypertensive chronic kidney disease with stage 5 chronic kidney disease or end stage renal disease (principal); E11.22 Type 2 diabetes mellitus with diabetic chronic kidney disease; N18.6 End stage renal disease; N25.81 Secondary hyperparathyroidism of renal origin; E78.5 Hyperlipidemia, unspecified; I25.10 Atherosclerotic heart disease of native coronary artery without angina pectoris; E66.01 Morbid (severe) obesity due to excess calories; Z88.1 Allergy status to other antibiotic agents; Z68.41 Body mass index [BMI] 40.0-44.9, adult; Z88.8 Allergy status to other drugs, medicaments and biological substances; Z98.890 Other specified postprocedural states; Z99.2 Dependence on renal dialysis
CPT/HCPCS: 36415; 36416; 80048; J1644; J2270; J2720; J3010; J3490